=== PATIENT | male | born 1940 | race Caucasian/White ===

== ENCOUNTER → 2017-06-05 | Outpatient (CLI) | payer OTHER ==
[~2017-06-05] MED LIST: AMBIEN10 MG PO; ANTIBIOTIC; KEFLEX500 MG PO; LOPRESSOR50 M1 PO; METOPROLOL100 MG PO; MULTI VITAMINS1 TAB PO; OMEPRAZOLE20 MG PO; TAMSULOSIN HYD0.4 MG PO; XANAX1 MG PO
[2017-06-05 11:23] LABS: HEMATOCRIT 40.1 % (42.0-52.0); HEMOGLOBIN 13.9 g/dl (14.0-18.0); MEAN CELL VOLUME 93.5 fl (80.0-94.0); MEAN CORPUSCULAR HGB 32.4 pg (27.0-31.0); MEAN CORPUSCULAR HGB CONC 34.7 g/dl (33.0-37.0); RED BLOOD COUNT 4.29 10*6/uL (4.50-5.90); RED CELL DISTRI WIDTH 12.4 % (0-14.5); WHITE BLOOD COUNT 5.2 10*3/uL (4.8-10.8)
[2017-06-05 11:40] LABS: ALBUMIN 3.6 gm/dl (3.1-4.5); ALKALINE PHOSPHATASE 83 U/L (45-117); BUN 18 mg/dl (7-24); CHLORIDE 106 mmol/L (98-107); CHOLESTEROL 159 mg/dL (<200); CREATININE 0.93 mg/dL (0.70-1.30); HDL CHOLESTEROL 65 mg/dl (40-60); LDL CHOLESTEROL 78 mg/dL (9-159); POTASSIUM 3.8 mmol/L (3.5-5.1); SGOT/AST 22 IU/L (3-35); SGPT/ALT 21 U/L (12-78); SODIUM 140 mmol/L (136-145); TOTAL PROTEIN 6.9 gm/dL (6.4-8.2); TRIGLYCERIDES 79 mg/dl (<150); VLDL CHOLESTEROL 16 mg/dL (6-40)
== END | disposition home or self-care (01) ==
LOC: LAB 10:39
PROVIDERS: Family Medicine
DX: M41.86 Other forms of scoliosis, lumbar region (principal); I10 Essential (primary) hypertension; K21.9 Gastro-esophageal reflux disease without esophagitis; E55.9 Vitamin D deficiency, unspecified; E78.00 Pure hypercholesterolemia, unspecified

== ENCOUNTER 2017-12-26 13:20 | Inpatient (IN) | payer OTHER ==
[~2017-12-26] VITALS: Ht 182.8 cm; Wt 76.2 kg
--- NOTE | ~2017-12-26 | EKG ---
[place], [place] ELECTROCARDIOGRAM REPORT NAME: GURMEET DUMONT JR UNIT #: [id number] ROOM: 521 DOCTOR: JASWANT MCALLISTER,CARL BIRTHDATE: [birth year] DOS: 12/26/2017 TIME: 1416 hours IMPRESSION: 1. Atrial fibrillation with controlled ventricular rate. 2. Baseline artifacts. 3. Incomplete right bundle branch block versus right ventricular hypertrophy. 4. Old inferior infarction. 5. Normal QT interval. CARL MICHAUD MD CM:EKGRPT:ELECTROCARDIOGRAM REPORT [id number] CARL MICAHUD MD
[2017-12-26 13:27] VITALS: BP 130/67
[2017-12-26 14:23] LABS: BASO % 0.6 % (0.0-1.0); EOS # 0.2 10*3/uL (0.0-0.4); EOS % 4.8 % (1.0-4.0); HEMATOCRIT 41.4 % (42.0-52.0); HEMOGLOBIN 14.3 g/dl (14.0-18.0); LYMPH # 1.8 10*3/uL (1.3-4.4); MEAN CELL VOLUME 91.2 fl (80.0-94.0); MEAN CORPUSCULAR HGB 31.5 pg (27.0-31.0); MEAN CORPUSCULAR HGB CONC 34.5 g/dl (33.0-37.0); MONO # 0.6 10*3/uL (0.1-1.0); MONO % 10.9 % (3.0-9.0); NEUT # 2.5 10*3/uL (2.3-7.9); NEUT % 48.7 % (47.0-73.0); PLATELET COUNT AUTOMATED 218 10*3/uL (130-400); RED BLOOD COUNT 4.54 10*6/uL (4.50-5.90); RED CELL DISTRI WIDTH 12.5 % (0-14.5)
[2017-12-26 14:40] LABS: ALBUMIN 3.4 gm/dl (3.1-4.5); ALKALINE PHOSPHATASE 80 U/L (45-117); BUN 18 mg/dl (7-24); CHLORIDE 107 mmol/L (98-107); CREATININE 1.01 mg/dL (0.70-1.30); POTASSIUM 3.9 mmol/L (3.5-5.1); SGOT/AST 26 IU/L (3-35); SGPT/ALT 30 U/L (12-78); SODIUM 141 mmol/L (136-145); TOTAL PROTEIN 6.7 gm/dL (6.4-8.2)
[2017-12-26 14:43] LABS: TROPONIN I < 0.015 ng/ml (<0.045)
[2017-12-26 15:37] VITALS: BP 116/71
[2017-12-26 16:07] VITALS: BP 128/80
== END 2017-12-26 16:45 | disposition left against medical advice (07) | DRG 310 ==
LOC: ED 13:20 → EDHOLD 15:56 → 5E 16:17
PROVIDERS: Physician Assistant
DX: I48.91 Unspecified atrial fibrillation (principal); Z53.21 Procedure and treatment not carried out due to patient leaving prior to being seen by health care provider; Z83.6 Family history of other diseases of the respiratory system; Z79.899 Other long term (current) drug therapy

== ENCOUNTER → 2018-08-03 | Outpatient (CLI) | payer OTHER ==
[2018-08-03 12:48] LABS: HEMATOCRIT 40.2 % (42.0-52.0); MEAN CELL VOLUME 93.3 fl (80.0-94.0); MEAN CORPUSCULAR HGB 32.5 pg (27.0-31.0); MEAN CORPUSCULAR HGB CONC 34.8 g/dl (33.0-37.0); MEAN PLATELET VOLUME 8.9 fl (9.6-12.3); RED BLOOD COUNT 4.31 10*6/uL (4.50-5.90); RED CELL DISTRI WIDTH 12.1 % (0-14.5); WHITE BLOOD COUNT 4.5 10*3/uL (4.8-10.8)
[2018-08-03 13:07] LABS: ALBUMIN 3.7 gm/dl (3.1-4.5); ALKALINE PHOSPHATASE 80 U/L (45-117); BUN 23 mg/dl (7-24); CHLORIDE 103 mmol/L (98-107); SGOT/AST 23 IU/L (3-35); SODIUM 137 mmol/L (136-145); TOTAL PROTEIN 6.9 gm/dL (6.4-8.2)
[2018-08-03 13:15] LABS: CHOLESTEROL 157 mg/dL (<200); CREATININE 0.88 mg/dL (0.70-1.30); HDL CHOLESTEROL 63 mg/dl (40-60); LDL CHOLESTEROL 71 mg/dL (9-159); SGPT/ALT 23 U/L (12-78); TRIGLYCERIDES 113 mg/dl (<150); VLDL CHOLESTEROL 23 mg/dL (6-40)
== END | disposition home or self-care (01) ==
LOC: LAB 11:19
PROVIDERS: Family Medicine
DX: C61 Malignant neoplasm of prostate (principal); I25.10 Atherosclerotic heart disease of native coronary artery without angina pectoris; E74.9 Disorder of carbohydrate metabolism, unspecified; E78.00 Pure hypercholesterolemia, unspecified; E55.9 Vitamin D deficiency, unspecified; M79.606 Pain in leg, unspecified

== ENCOUNTER 2019-02-25 11:02 | Inpatient (IN) | payer OTHER ==
[~2019-02-25] VITALS: Ht 182.8 cm; Wt 71.4 kg
[2019-02-25] VITALS (11 sets, daily range): BP systolic 101–149; BP diastolic 64–102
--- NOTE | ~2019-02-25 | EKG ---
[place], [place] ELECTROCARDIOGRAM REPORT NAME: GURMEET DUMONT JR UNIT #: [id number] ROOM: 515 DOCTOR: SAMMI DRAFT REPORT BIRTHDATE: [birth year] [facility] Test Date: 2019-02-25 Test Time: 15:06:28 Pat Name: GURMEET DUMONT Department: Room: [facility] Gender: M Car Sales Representative: Nona Francisco : 1940 Requested By: SALEEM UMANZOR Order Number: [id number] Reading MD: Mohini Spann Measurements Intervals [place] Rate: 99 P: [place]: QRS: -76 QRSD: 92 T: 57 QT: 375 QTc: 482 Interpretive Statements Atrial fibrillation Abnormal R-wave progression, early transition Inferior infarct, old Electronically Signed On 02-28-2019 11:49:54 PDT by Mohini Spann CM:EKGRPT:ELECTROCARDIOGRAM REPORT [id number] SALEEM CHAPA DRAFT REPORT SALEEM UMANZOR M.D.
--- NOTE | ~2019-02-25 | WRIGHTHP ---
[place], [place] PATIENT HISTORY AND PHYSICAL EXAM NAME: GURMEET DUMONT JR [facility] #: [id number] UNIT #: [id number] ROOM: [facility] DOCTOR: LESLIE CARMONA MD BIRTHDATE: [birth year] DOS: HISTORY OF PRESENT ILLNESS: The patient is a 78-year-old gentleman with a past medical history of chronic atrial fibrillation, cancer of the prostate, depression, generalized anxiety disorder, rheumatoid arthritis. The patient presented to the Emergency Department with feeling palpitations, weak and he was found to be in atrial fibrillation with rapid ventricular response and was admitted to a monitored bed on IV Cardizem infusion. No chest pains, no dizziness or fainting episodes. No other GI or urinary symptoms. REVIEW OF SYSTEMS: RESPIRATORY: No increasing shortness of breath. GASTROINTESTINAL: No nausea, vomiting, diarrhea and constipation. CARDIOVASCULAR SYSTEM: Sensation of palpitations. No chest pains. FAMILY HISTORY: Noncontributory. SOCIAL HISTORY: Denies smoking cigarettes, alcohol and drug abuse. ALLERGIES: No known drug allergies. PHYSICAL EXAMINATION: GENERAL: Alert and oriented x 3, in no visible distress. VITAL SIGNS: Blood pressure 114/65, heart rate 98 beats per minute, breathing 18 times per minute, temperature 98 degrees Fahrenheit, heart rate went as high as 142 beats per minute recorded. HEENT AND NECK: Extraocular movements are intact. Sclerae are anicteric. Oral mucosa is moist and clean. No obvious facial weakness. Neck is supple without any lymphadenopathy. No thyromegaly. No JVD. No carotid arterial bruits. LUNGS: Clear to auscultation. No wheezing. No rhonchi. CARDIOVASCULAR SYSTEM: Heart rate is regular in rate and rhythm. S1 and S2 normally audible. No significant murmur or any other abnormal cardiac sounds. ABDOMEN: Soft, nontender. No obvious organomegaly. Bowel sounds are present. No obvious herniation. EXTREMITIES: Without significant cyanosis or edema. Warm to touch. CENTRAL NERVOUS SYSTEM: Alert and oriented x 3. Cranial nerves II-XII are intact. Speech is normal. The patient is able to move all extremities. Normal muscle strength. Deep tendon reflexes are equal on both sides. Plantars were downgoing. The patient with atrial fibrillation and rapid ventricular response. IMPRESSION: 1. The patient with bilateral inguinal pains where he had surgery requesting for pain medication injection. He will be given Toradol. Plan to continue digoxin and the patient already anticoagulated with Xarelto. 2. Benign prostatic hypertrophy and urine retention, asymptomatic with Flomax. 3. Gastroesophageal reflux disease and esophagitis, asymptomatic with omeprazole. 4. Benign essential hypertension, treated and controlled. [place], [place] PATIENT HISTORY AND PHYSICAL EXAM NAME: GURMEET DUMONT JR Paul UNIT #: [id number] ROOM: [facility] DOCTOR: LESLIE CARMONA MD BIRTHDATE: [birth year] LESLIE CARMONA MD CM:HISPHYS:PATIENT HISTORY AND PHYSICAL EXAMINATION 1205 [id number] LESLIE CARMONA MD 02/26/19 1242 interface
--- NOTE | ~2019-02-25 | EKG ---
[place], [place] ELECTROCARDIOGRAM REPORT NAME: GURMEET DUMONT JR UNIT #: [id number] ROOM: 515 DOCTOR: SAMMI DRAFT REPORT BIRTHDATE: [birth year] [facility] Test Date: 2019-02-25 Test Time: 11:17:32 Pat Name: GURMEET DUMONT Department: Room: [facility] Gender: M Business Process Consultant: : 1940 Requested By: SALEEM UMANZOR Order Number: [id number] Reading MD: Mohini Spann Measurements Intervals [place] Rate: 143 P: [place]: QRS: -65 QRSD: 88 T: 41 QT: 306 QTc: 472 Interpretive Statements Atrial fibrillation with rapid V-rate Abnormal R-wave progression, early transition Inferior infarct, old Electronically Signed On 02-28-2019 11:48:42 PDT by Mohini Spann CM:EKGRPT:ELECTROCARDIOGRAM REPORT [id number] 1148 SALEEM CHAPA DRAFT REPORT SALEEM UMANZOR M.D.
--- NOTE | ~2019-02-25 | EKG ---
[place], [place] ELECTROCARDIOGRAM REPORT NAME: GURMEET DUMONT JR UNIT #: [id number] ROOM: 515 DOCTOR: SAMMI DRAFT REPORT BIRTHDATE: [birth year] [facility] Test Date: 2019-02-25 Test Time: 17:57:35 Pat Name: GURMEET DUMONT Department: Room: [facility] Gender: M Medical Device: EKG.[place] : 1940 Requested By: SLAEEM UMANZOR Order Number: [id number] Reading MD: Mohini Spann Measurements Intervals [place] Rate: 85 P: [place]: QRS: -71 QRSD: 93 T: 61 QT: 346 QTc: 412 Interpretive Statements Atrial fibrillation Abnormal R-wave progression, early transition Inferior infarct, old No previous ECG available for comparison Electronically Signed On 02-28-2019 11:50:54 PDT by Mohini Spann CM:EKGRPT:ELECTROCARDIOGRAM REPORT [id number] SALEEM CHAPA DRAFT REPORT SALEEM UMANZOR M.D.
--- NOTE | ~2019-02-25 | DS ---
[place], [place] DISCHARGE SUMMARY [id number] #: [id number] ROOM: 515 DOCTOR: RUBI MARTINEZ MD BIRTHDATE: [birth year] DOS: 02/27/2019 DIAGNOSES: 1. Atrial fibrillation with rapid ventricular response, slow down with medications, but remains in atrial fibrillation. 2. Long-term use of anticoagulants. 3. Benign hypertension. 4. Benign prostatic hypertrophy. PENSION CONSULTANT: Dr. Spann. HOSPITAL COURSE: This patient is 78 years old presented with palpitations. Please refer to H and P for the details, found to be in rapid AFib, was admitted on IV Cardizem. Digoxin was also given. The patient's heart rate slowed down, IV Cardizem discontinued. Beta blockers and Lanoxin p.o. was started. The patient is stable this morning and is not having any complaints. The plan is to discharge him to home. DISCHARGE MEDICATIONS: Xarelto 20 daily, Lanoxin 0.125 daily, multivitamin 1 tablet daily, Xanax 1 mg b.i.d., omeprazole 20 daily, tamsulosin 0.4 daily, metoprolol 50 b.i.d., quetiapine 100 mg at bedtime, Myrbetriq 25 daily, dicyclomine 10 t.i.d. RUBI MARTINEZ MD CM:DISCHARG 0813 9 RUBI MARTINEZ MD 02/27/19911 interface
--- NOTE | ~2019-02-25 | PR ---
[place], [place] PROGRESS NOTE [id number] #: [id number] ROOM: 515 DOCTOR: RUBI MARTINEZ MD BIRTHDATE: [birth year] DOS: SUBJECTIVE: The patient is doing fine without any complaints. OBJECTIVE: VITAL SIGNS: Graphic trend shows a pressure of 108/70, pulse of 90, respirations 16, temperature 97.5. LUNGS: Clear. HEART: Irregular. ABDOMEN: Obese, soft. EXTREMITIES: Without any edema. ASSESSMENT AND PLAN: 1. Atrial fibrillation with rapid ventricular response. His heart rate has slowed down. He is stable on the current medications and, so, the plan is to discharge him to home today. 2. Long-term use of anticoagulants has been restarted with Xarelto. Prescription was given. He is advised to follow up with his PCP. Reviewed Cardiology notes. RUBI MARTINEZ MD CM:PNTRANS 0811 1034 RUBI MARTINEZ MD 02/27/19 1036 interface
[2019-02-25 11:27] LABS: BASO % 0.5 % (0.0-1.0); EOS # 0.2 10*3/uL (0.0-0.4); EOS % 3.9 % (1.0-4.0); HEMATOCRIT 41.3 % (42.0-52.0); HEMOGLOBIN 14.1 g/dl (14.0-18.0); LYMPH # 1.3 10*3/uL (1.3-4.4); LYMPH % 21.6 % (27.0-41.0); MEAN CELL VOLUME 94.7 fl (80.0-94.0); MEAN CORPUSCULAR HGB 32.3 pg (27.0-31.0); MEAN CORPUSCULAR HGB CONC 34.1 g/dl (33.0-37.0); MEAN PLATELET VOLUME 9.4 fl (9.6-12.3); MONO # 0.6 10*3/uL (0.1-1.0); MONO % 10.5 % (3.0-9.0); NEUT # 3.9 10*3/uL (2.3-7.9); NEUT % 63.3 % (47.0-73.0); PLATELET COUNT AUTOMATED 234 10*3/uL (130-400); RED BLOOD COUNT 4.36 10*6/uL (4.50-5.90); RED CELL DISTRI WIDTH 13.4 % (0-14.5); WHITE BLOOD COUNT 6.1 10*3/uL (4.8-10.8)
[2019-02-25 11:39] LABS: ACT PARTIAL THROMBO TIME 24.1 SECONDS (20.0-32.1)
[2019-02-25 11:42] LABS: ALBUMIN 3.3 gm/dl (3.1-4.5); ALKALINE PHOSPHATASE 99 U/L (45-117); BUN 22 mg/dl (7-24); CHLORIDE 110 mmol/L (98-107); CREATININE 1.02 mg/dL (0.70-1.30); POTASSIUM 3.8 mmol/L (3.5-5.1); SGOT/AST 16 IU/L (3-35); SGPT/ALT 25 U/L (12-78); SODIUM 143 mmol/L (136-145); TOTAL PROTEIN 6.7 gm/dL (6.4-8.2)
[2019-02-25] MEDS ORDERED: DICYCLOMINE HCL10 MG PO (11:42)
[2019-02-25] MEDS ORDERED: QUETIAPINE FUM200 M1 PO (11:42)
[2019-02-25] MEDS ORDERED: MYRBETRIQ25 M1 PO (11:42)
[2019-02-25 11:47] LABS: TROPONIN I < 0.015 ng/ml (<0.045)
--- NOTE | 2019-02-25 12:49 | NUR ---
PT W/O ACUTE DISTRESS NOTED,POSITIONED FOR COMFORT WITH SAFETY PRECAUTIONS INTACT,CALL LIGHT WITHIN REACH AN A URINAL PROVIDED,PT WITH BLE PAIN/CRAMPING INTERMITTENTLY AND DREW MCCRARY PA-C MADE AWARE.
--- NOTE | 2019-02-25 15:36 | NUR ---
A 78, admitted to , under the services of Dr. MATHEW MCALLISTER,LESLIE Varghese with a diagnosis of ATRIAL FIBRILLATION WITH RVR. Chief complaint is SHORTNESS OF BREATH . Patient arrived via stretcher from ER. Monitor applied. Initial assessment completed. Vital signs taken and recorded. DR. MATHEW MCALLISTER,LESLIE Varghese notified of admission to the unit. Orders received. See assessment for past medical history, medications and allergies. Patient and/or family oriented to unit. [facility] visitation policy reviewed. Clothing/patient valuable form completed. JACQUE ISLAS
--- NOTE | 2019-02-25 17:06 | NUR ---
SPOKE WITH DR CARMONA - ORDERS TAKEN AND REVIEWED.
--- NOTE | 2019-02-25 17:18 | NUR ---
PHONE CALL PLACED TO DR SAINI'S ANSWERING SERVICE TO INFORM OF CONSULT. AWAITING A RETURN PHONE CALL.
--- NOTE | 2019-02-25 19:00 | NUR ---
BEDSIDE REPORT OBTAINED FROM JACQUE-ANTONY. PATIENT IS RESTING IN BED, VOCIED NO COMPLAINTS. NO DSITRESS NOTED. METAL MODEL MAKER SHOWS AFIB MOSTLY HIGH 90'S-110'S BUT JUMPING UP TO 130'S AT TIMES. CARDIZEM DRIP INCREASED TO 10MG/HR. BED IS LOCKED IN LOWEST POSITON, CALL LIGHT WITHIN REACH.
--- NOTE | 2019-02-25 20:00 | NUR ---
IV started right hand with #20 protective cath after 0 attempts. Site prepped with Chloroprep. Sterile dressing applied. Patient tolerated procedure well. IVORY MCCARTHY
[2019-02-26] VITALS (7 sets, daily range): BP systolic 100–119; BP diastolic 57–72
--- NOTE | 2019-02-26 | NUR ---
PER CM HR IRREGULAR AFIB 70-80'S BPM. CARDIZEM TITRATED DOWN TO 5MG/HR, BLOOD PRESSURE STABLE. PATIENT VOICED NO COMPLAINTS. CALL LIGHT WITHIN REACH.
--- NOTE | 2019-02-26 00:25 | NUR ---
PER CM HR IRREGULAR FIB 60-70'S BPM PER CM. CARDIZEM DRIP STOPPED AT THIS TIME. PATIENT RESTING QUIETLY, NO DISTRESS NOTED. CALL LIGHT WITHIN REACH.
--- NOTE | 2019-02-26 02:00 | NUR ---
PATIENT ASLEEP. EYES CLOSED. NO DISTRESS NOTED. HR PER CM IRREGULAR AFIB 60-70'S. NO DISTRESS NOTED. CALL LIGHT WITHIN REACH.
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
--- NOTE | 2019-02-26 11:35 | NUR ---
Alert and oriented x3 at assessment. Afib on CM hr 90's denies chest pain or palpitations. C/o pain to rt lower quad of abdomen, states he has had a hx of hernia surgery and has had pain off and on since then. Dr. Syed was in room at time of assessment and he states he will review labs on pt and order toradol if appropriate.
--- NOTE | 2019-02-26 13:30 | NUR ---
Spoke with Pierce in pharmacy regarding order from Dr. Syed for order for toradol 60 mg IM x 1 dose. I was unable to enter it as IM in the system, it only comes up as IV. Pierce Pharmacist states he will enter order on his side for pt.
--- NOTE | 2019-02-26 18:19 | NUR ---
Pt states he only had a small result from suppository and is requesting something else to help him have a BM. Medicated with ducolox po per prn order.
--- NOTE | 2019-02-26 19:28 | NUR ---
24 HR CHART CHECK COMPLETE.
--- NOTE | 2019-02-26 20:08 | NUR ---
24 HR chart check completed.
--- NOTE | 2019-02-26 22:00 | NUR ---
RESTING IN BED WITH NO ACUTE DISTRESS NOTED. RESPIRATIONS EASY. LUNGS DIMINISHED, CLEAR. PULSE OX 99% RA. DENIES SOB OR HEART PALPITATIONS. CALL LIGHT WITHIN REACH. NO VOICED COMPLAINTS.
[2019-02-27] VITALS: BP 108/70; BP 99/75
--- NOTE | 2019-02-27 01:00 | NUR ---
SLEEPING. NO ACUTE DISTRESS NOTED. RESPIRATIONS EASY. CALL LIGHT WITHIN REACH.
--- NOTE | 2019-02-27 06:00 | NUR ---
SLEPT THROUGHOUT NIGHT WITH NO DISTRESS NOTED. RESPIRATIONS EASY. HR 80-100, REMAINS A-FIB. CALL LIGHT WITHIN REACH. NO VOICED COMPLAINTS THIS SHIFT
[2019-02-27 08:00] VITALS: BP 122/76; BP 123/52
[2019-02-27] MEDS ORDERED: XARE20MG PO (08:05)
[2019-02-27] MEDS ORDERED: Lanoxin PO (08:05)
--- NOTE | 2019-02-27 09:32 | NUR ---
Discharge instructions reviewed with patient/family. Patient receptive and verbalizes understanding. Follow-up care arranged. Written instructions given to patient/family. FABRICIO SUGGS
--- NOTE | 2019-02-27 09:56 | NUR ---
Discharge instructions reviewed with patient/family. Patient receptive and verbalizes understanding. Follow-up care arranged. Written instructions given to patient/family. FABRICIO SUGGS
== END 2019-02-27 09:56 | disposition home or self-care (01) | DRG 310 ==
LOC: ED 11:02 → 5E 14:08 → EDHOLD 14:08 → 5E 14:27
PROVIDERS: Emergency Medicine; ADMIT Internal Medicine
DX: I48.91 Unspecified atrial fibrillation (principal); F41.1 Generalized anxiety disorder; M06.9 Rheumatoid arthritis, unspecified; F32.9 Major depressive disorder, single episode, unspecified; N40.1 Benign prostatic hyperplasia with lower urinary tract symptoms; I10 Essential (primary) hypertension; K21.0 Gastro-esophageal reflux disease with esophagitis; R33.9 Retention of urine, unspecified; Z85.46 Personal history of malignant neoplasm of prostate; Z83.6 Family history of other diseases of the respiratory system; Z79.01 Long term (current) use of anticoagulants; S06.9X9S Unspecified intracranial injury with loss of consciousness of unspecified duration, sequela

== ENCOUNTER 2019-07-14 16:14 | Emergency (ER) | payer OTHER ==
[~2019-07-14] VITALS: Ht 182.8 cm; Wt 70.3 kg
[~2019-07-14 16:14] MED LIST changes: +DICYCLOMINE HCL10 MG PO; +Lanoxin PO; +MYRBETRIQ25 M1 PO; +QUETIAPINE FUM200 M1 PO; +XARE20MG PO
[2019-07-14 16:16] VITALS: BP 142/66
== END 2019-07-14 17:50 | disposition home or self-care (01) ==
LOC: ED 16:14
DX: S81.832A Puncture wound without foreign body, left lower leg, initial encounter (principal); Z79.899 Other long term (current) drug therapy; Z87.891 Personal history of nicotine dependence; W22.8XXA Striking against or struck by other objects, initial encounter; Y93.89 Activity, other specified; Y92.89 Other specified places as the place of occurrence of the external cause; Y99.8 Other external cause status

== ENCOUNTER → 2019-10-19 | Outpatient (CLI) | payer OTHER ==
[2019-10-19 15:24] LABS: HEMOGLOBIN 14.1 g/dl (14.0-18.0); MEAN CELL VOLUME 94.2 fl (80.0-94.0); MEAN CORPUSCULAR HGB 31.6 pg (27.0-31.0); MEAN CORPUSCULAR HGB CONC 33.6 g/dl (33.0-37.0); MEAN PLATELET VOLUME 9.4 fl (9.6-12.3); RED BLOOD COUNT 4.46 10*6/uL (4.50-5.90); RED CELL DISTRI WIDTH 12.5 % (0-14.5); WHITE BLOOD COUNT 6.2 10*3/uL (4.8-10.8)
[2019-10-19 15:43] LABS: ALBUMIN 3.9 gm/dl (3.1-4.5); ALKALINE PHOSPHATASE 85 U/L (45-117); BUN 23 mg/dl (7-24); CHLORIDE 108 mmol/L (98-107); CHOLESTEROL 177 mg/dL (<200); CREATININE 1.02 mg/dL (0.70-1.30); HDL CHOLESTEROL 72 mg/dl (40-60); LDL CHOLESTEROL 92 mg/dL (9-159); SGOT/AST 18 IU/L (3-35); SGPT/ALT 26 U/L (12-78); SODIUM 141 mmol/L (136-145); TOTAL PROTEIN 7.2 gm/dL (6.4-8.2); TRIGLYCERIDES 63 mg/dl (<150); VLDL CHOLESTEROL 13 mg/dL (6-40)
[2019-10-19 15:53] LABS: DIGOXIN 0.09 ng/ml (0.8-2.0)
== END | disposition home or self-care (01) ==
LOC: LAB 14:40
PROVIDERS: Nurse Practitioner Family
DX: Z12.5 Encounter for screening for malignant neoplasm of prostate (principal); E55.9 Vitamin D deficiency, unspecified; I10 Essential (primary) hypertension; I48.91 Unspecified atrial fibrillation

== ENCOUNTER 2020-04-04 08:57 | Inpatient (IN) | payer OTHER ==
[~2020-04-04] VITALS: Ht 182.8 cm; Wt 65.9 kg
[2020-04-04 09:02] VITALS: BP 108/62
--- NOTE | 2020-04-04 10:01 | NUR ---
LAB AT BEDSIDE, EKG COMPLETED.
--- NOTE | 2020-04-04 10:12 | NUR ---
RADIOLOGY AT BEDSIDE.
[2020-04-04 10:42] LABS: BASO % 0.4 % (0.0-1.0); EOS % 0.2 % (1.0-4.0); LYMPH # 0.8 10*3/uL (1.3-4.4); LYMPH % 15.7 % (27.0-41.0); MEAN CELL VOLUME 94.7 fl (80.0-94.0); MEAN CORPUSCULAR HGB 31.6 pg (27.0-31.0); MEAN CORPUSCULAR HGB CONC 33.3 g/dl (33.0-37.0); MEAN PLATELET VOLUME 9.5 fl (9.6-12.3); MONO # 0.3 10*3/uL (0.1-1.0); NEUT # 3.7 10*3/uL (2.3-7.9); NEUT % 76.5 % (47.0-73.0); PLATELET COUNT AUTOMATED 254 10*3/uL (130-400); RED BLOOD COUNT 4.12 10*6/uL (4.50-5.90); RED CELL DISTRI WIDTH 12.7 % (0-14.5); WHITE BLOOD COUNT 4.9 10*3/uL (4.8-10.8)
[2020-04-04 10:53] LABS: ACT PARTIAL THROMBO TIME 33.1 SECONDS (20.0-32.1); INTERNATIONAL NORM RATIO 1.3 (2.0-3.5)
[2020-04-04 11:02] LABS: EPITHELIAL CELLS 0-2; WBC 0-2 wbc/hpf (0-5)
[2020-04-04 11:03] LABS: ALBUMIN 3.6 gm/dl (3.1-4.5); ALKALINE PHOSPHATASE 65 U/L (45-117); BUN 27 mg/dl (7-24); CHLORIDE 105 mmol/L (98-107); CREATININE 1.16 mg/dL (0.70-1.30); LIPASE 78 U/L (73-393); POTASSIUM 4.9 mmol/L (3.5-5.1); SGOT/AST 46 IU/L (3-35); SGPT/ALT 31 U/L (12-78); SODIUM 137 mmol/L (136-145); TOTAL PROTEIN 7.4 gm/dL (6.4-8.2)
[2020-04-04 11:03] LABS: BILIRUBIN NEGATIVE (NEGATIVE); BLOOD TRACE-INTACT (NEGATIVE); CLARITY CLEAR (CLEAR); COLOR YELLOW (YELLOW); GLUCOSE NEGATIVE (NEGATIVE); KETONE 2+ (NEGATIVE); LEUKO ESTERASE NEGATIVE (NEGATIVE); NITRITE NEGATIVE (NEGATIVE); SPECIFIC GRAVITY 1.015 (1.005-1.030); UROBILINOGEN 0.2 E.U./dl (0.2-1.0)
[2020-04-04 11:10] LABS: TROPONIN I < 0.015 ng/ml (<0.045)
--- NOTE | 2020-04-04 12:42 | NUR ---
PT SITTING SEMI FOWLERS IN BED, NO NEEDS.
--- NOTE | 2020-04-04 13:28 | NUR ---
MULTIPLE LESIONS OVER BODY, PT REFUSING PHOTOS AT THIS TIME. TRISH HARDY WITNESSED.
--- NOTE | 2020-04-04 13:46 | NUR ---
WALKED INTO ROOM AND PT IS PICKING AT RASH TO PENIS AND ABDOMEN. PT STATES "IT ITCHES AND PELAEZ". ENCOURAGED PT TO STOP PICKING.
[2020-04-04 13:53] VITALS: BP 120/80
--- NOTE | 2020-04-04 14:29 | NUR ---
PT REFUSED WOUND PHOTO'S AND MEASUREMENTS.
--- NOTE | 2020-04-04 14:50 | NUR ---
MSADMTime: N A 79 year old MALE admitted to 5E under services of MIGUEL LANDEROS DO. Pt. arrived via bed from ER. Chief complaint: INSECT BITES. HECTOR ARREDONDO
--- NOTE | 2020-04-04 15:46 | NUR ---
DR. MATA'S OFFICE NOTIFIED OF COMSULT.
[2020-04-04 16:00] VITALS: BP 146/74
[2020-04-04 20:00] VITALS: BP 112/67
--- NOTE | 2020-04-04 20:33 | NUR ---
DR BOLTON AWARE OF PATIENT REQUESTING SOMETHING FOR ITCHING.
--- NOTE | 2020-04-04 20:53 | NUR ---
MEDICATED WITH PRN XANAX FOR ANXIOUSNESS AND ONE TIME BENEDRYL FOR ITCHING.
--- NOTE | 2020-04-04 21:53 | NUR ---
XANAX AND BENEDRYL EFFECTIVE PER PATIENT
--- NOTE | 2020-04-04 23:25 | NUR ---
DR BOLTON AWARE OF PATIENT'S BLOOD PRESSURE. ORDER FOR ONE LITER BOLUS NOW
[2020-04-05] VITALS (8 sets, daily range): BP systolic 82–119; BP diastolic 38–72
--- NOTE | 2020-04-05 00:42 | NUR ---
DR BOLTON AWARE OF PATIENT'S UPDATED BLOOD PRESSURE AFTER FLUID BOLUS. STATES TO GIVE NORMAL SALINE AT 150CC/HR FOR ONE BAG
--- NOTE | 2020-04-05 07:34 | NUR ---
GURMEET DUMONT JR [id number] Please refer to the physician's history and physical for past medical history, comorbid conditions, and allergies. Diagnosis: CELLULITIS,ABDOMINAL WALL,RASH Tomas Score: 22,LOW OR NO RISK WOUND DESCRIPTIONS: Wound Number: 1 Location of the wound: penis Type of wound: insect bite Size: 1.7cm x 1.7cm x 0.1cm Tunneling: none Undermining: none Sinus Tract: none Presence of Exudate: none Amount: None Color: Red Odor: None Periwound Skin Appearance: Normal Wound edges: approximated Pain (associated with wound): none at time of assessment How does patient state this happened? pt state he was helping a woman clean her attic and put the womans pants on that have been there for several years because he thought they were clean and bugs were flying off at him and attacking him Wound Number: 2 Location of the wound: right upper thigh Type of wound: insect bite Thickness: Full Size: 9.5cm x 11.0cm x 0.1cm Tunneling: none Undermining: none Sinus Tract: none Presence of Exudate: none Amount: None Color: Red, yellow, brown Odor: None Periwound Skin Appearance: Normal Wound edges: approximated Pain (associated with wound): none at time of assessment How does patient state this happened? pt state he was helping a woman clean her attic and put the womans pants on that have been there for several years because he thought they were clean and bugs were flying off at him and attacking him Wound Number: 3 Location of the wound: right anterior thigh Type of wound: insect bite Thickness: Full Size: 0.5cm x 0.6cm x 0.1cm Tunneling: none Undermining: none Sinus Tract: none Presence of Exudate: none Amount: None Color: Red, brown Odor: None Periwound Skin Appearance: Normal Wound edges: approximated Pain (associated with wound): none at time of assessment How does patient state this happened? pt state he was helping a woman clean her attic and put the womans pants on that have been there for several years because he thought they were clean and bugs were flying off at him and attacking him Wound Number: 4 Location of the wound: right medial upper thigh Type of wound: insect bite Thickness: Full Size: 0.7cm x 1.2cm x 0.1cm Tunneling: none Undermining: none Sinus Tract: none Presence of Exudate: none Amount: None Color: Red, brown Odor: None Periwound Skin Appearance: Normal Wound edges: approximated Pain (associated with wound): none at time of assessment How does patient state this happened? pt state he was helping a woman clean her attic and put the womans pants on that have been there for several years because he thought they were clean and bugs were flying off at him and attacking him Wound Number: 5 Location of the wound: left lateral knee Type of wound: insect bite Thickness: Full Size: 1.4cm x 1.4cm x 0.1cm Tunneling: none Undermining: none Sinus Tract: none Presence of Exudate: none Amount: None Color: Red, brown Odor: None Periwound Skin Appearance: Normal Wound edges: approximated Pain (associated with wound): none at time of assessment How does patient state this happened? pt state he was helping a woman clean her attic and put the womans pants on that have been there for several years because he thought they were clean and bugs were flying off at him and attacking him Wound Number: 6 Location of the wound: left hip Type of wound: insect bite Thickness: Full Size: 12.0cm x 9.0cm x 0.1cm Tunneling: none Undermining: none Sinus Tract: none Presence of Exudate: none Amount: None Color: Red, brown, yellow Odor: None Periwound Skin Appearance: Normal Wound edges: approximated Pain (associated with wound): none at time of assessment How does patient state this happened? pt state he was helping a woman clean her attic and put the womans pants on that have been there for several years because he thought they were clean and bugs were flying off at him and attacking him Wound Number: 7 Location of the wound: abdomen Type of wound: insect bite Thickness: Full Size: 7.5cm x 4.0cm x 0.1cm Tunneling: none Undermining: none Sinus Tract: none Presence of Exudate: none Amount: None Color: Red, yellow, brown Odor: None Periwound Skin Appearance: Normal Wound edges: approximated Pain (associated with wound): none at time of assessment How does patient state this happened? pt state he was helping a woman clean her attic and put the womans pants on that have been there for several years because he thought they were clean and bugs were flying off at him and attacking him Wound Number: 8 Location of the wound: left ear Type of wound: insect bite Thickness: Full Size: 2.0cm x 2.5cm x 0.1cm Tunneling: none Undermining: none Sinus Tract: none Presence of Exudate: none Amount: None Color: Red, brown Odor: None Periwound Skin Appearance: Normal Wound edges: approximated Pain (associated with wound): none at time of assessment How does patient state this happened? pt state he was helping a woman clean her attic and put the womans pants on that have been there for several years because he thought they were clean and bugs were flying off at him and attacking him Wound Number: 9 Location of the wound: left upper thigh Type of wound: insect bite Thickness: Full Size: 14.5cm x 15.5cm x 0.1cm Tunneling: none Undermining: none Sinus Tract: none Presence of Exudate: none Amount: None Color: Red, yellow, brown Odor: None Periwound Skin Appearance: Normal Wound edges: approximated Pain (associated with wound): none at time of assessment How does patient state this happened? pt state he was helping a woman clean her attic and put the womans pants on that have been there for several years because he thought they were clean and bugs were flying off at him and attacking him Surface the patient is resting on: Isoflex SKIN PREVENTION RECOMMENDATION: 1. Pressure redistribution support surface as appropriate 2. Elevate heels 3. Remove boots/TEDS every shift and reapply 4. Head of bed 30 degrees as tolerated 5. Assess nutrition and hydration 6. Manage moisture 7. Avoid the use of containment devices while in bed 8. Use absorptive products on surfaces limit layers of linens on bed 9. Turn and reposition every 1-2 hours in bed and every 1 hour in chair as tolerated 10. Weight shifts every 15 minutes while up in chair 11. Offloading with pillows or device to keep heels elevated off bed 12. Monitor skin at least every shift 13. Inspect under medical devices twice a day WOUND TREATMENT RECOMMENDATIONS: ID is already on consult for rash noted to several areas on body. Cleanse penis with nss and apply bactroban ointment bid leave open to air Cleanse right upper thigh, left upper thigh, right upper anterior thigh, right upper medial thigh, left lateral knee, left hip, abdomen and left ear with nss and apply bactroban ointment bid and cover with dsd. Patient states he will follow with Dr. Govea upon discharged and doesn't wish to follow up in the wound care center at this time.
[2020-04-05 07:42] LABS: BASO % 0.6 % (0.0-1.0); EOS # 0.3 10*3/uL (0.0-0.4); EOS % 5.3 % (1.0-4.0); HEMATOCRIT 34.9 % (42.0-52.0); LYMPH # 1.2 10*3/uL (1.3-4.4); LYMPH % 24.9 % (27.0-41.0); MEAN CELL VOLUME 95.9 fl (80.0-94.0); MEAN CORPUSCULAR HGB 31.6 pg (27.0-31.0); MEAN PLATELET VOLUME 9.3 fl (9.6-12.3); MONO # 0.5 10*3/uL (0.1-1.0); MONO % 10.8 % (3.0-9.0); NEUT # 2.8 10*3/uL (2.3-7.9); NEUT % 58.2 % (47.0-73.0); PLATELET COUNT AUTOMATED 217 10*3/uL (130-400); RED BLOOD COUNT 3.64 10*6/uL (4.50-5.90); RED CELL DISTRI WIDTH 12.8 % (0-14.5); WHITE BLOOD COUNT 4.7 10*3/uL (4.8-10.8)
[2020-04-05 07:57] LABS: ALBUMIN 2.9 gm/dl (3.1-4.5); ALKALINE PHOSPHATASE 61 U/L (45-117); BUN 25 mg/dl (7-24); CHLORIDE 112 mmol/L (98-107); CREATININE 0.98 mg/dL (0.70-1.30); SGOT/AST 24 IU/L (3-35); SGPT/ALT 21 U/L (12-78); TOTAL PROTEIN 5.7 gm/dL (6.4-8.2)
[2020-04-05 08:05] LABS: POTASSIUM 3.7 mmol/L (3.5-5.1); SODIUM 142 mmol/L (136-145)
--- NOTE | 2020-04-05 08:36 | NUR ---
PT RESTING IN BED. NO DISTRESS NOTED. PT EATING BREAKFAST. WILL MONITOR
--- NOTE | 2020-04-05 08:51 | NUR ---
Dr. Horner notified of wound care recommendations
--- NOTE | 2020-04-05 11:58 | NUR ---
PT REQUESTED AND GIVEN NORCO FOR C/O ' ALL OVER PAIN " PT RATES PAIN 05/08 WILL MONITOR
--- NOTE | 2020-04-05 12:55 | NUR ---
Sales Clerk in to talk to patient. Patient states lives at HOME with ALONE. There are 13 steps in the home. Physician: BETH Pharmacy: [facility] [place] health services: NONE Patient's level of ADLs: INDEPENDENT Patient has working utilities: YES DME: NONE Follow-up physician's appointment after d/c: WILL BE MADE BY HOSPITALIST NURSE DIRECTOR ON DISCHARGE Does patient want to access PORTAL?: NO Discharge plan PT LIVES AT HOME ALONE AND IS INDEPENDENT IN HIS CARE. PT STATES HIS BROTHER RECENTLY AND HE IS LIVING IN HIS HOUSE. PT STATES HE HAD HIS BROTHERS OXYGEN AT HOME AND HAD BEEN USING IT OCCASIONALLY UNTIL THE TANK RAN OUT. PLANS TO RETURN HOME WHEN MEDICALLY STABLE. WILL CONTINUE TO FOLLOW. WILL TAKE A TAXI HOME WHEN DISCHARGED UNLESS HIS GRAND DAUGHTER IS BACK IN TOWN.. ZACHARY FATIMA
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
[2020-04-05 21:40] LABS: CLARITY SL CLOUDY (CLEAR); COLOR YELLOW (YELLOW); GLUCOSE NEGATIVE (NEGATIVE); KETONE NEGATIVE (NEGATIVE); LEUKO ESTERASE NEGATIVE (NEGATIVE); NITRITE NEGATIVE (NEGATIVE); SPECIFIC GRAVITY 1.015 (1.005-1.030); UROBILINOGEN 0.2 E.U./dl (0.2-1.0)
[2020-04-05 21:55] LABS: BILIRUBIN NEGATIVE (NEGATIVE); BLOOD NEGATIVE (NEGATIVE)
[2020-04-06] VITALS: BP 99/64
--- NOTE | 2020-04-06 02:28 | NUR ---
PATIENT'S IV IN RIGHT ARM INFILTRATED. DISCONTINUED AND RESTARTED. 22 GUAGE HEP LOCKED IN THE LEFT ARM. FLUSHED WITH NORMAL SALINE. CLEANED WITH CHLOROPREP BEFORE INSERTION. PATIENT TOLERATED WELL. IV LEVAQUIN HOOKED UP AND RUNNING.
[2020-04-06 08:00] VITALS: BP 135/66
--- NOTE | 2020-04-06 08:30 | NUR ---
PT RESTING IN BED. NO DISTRESS NOETD. WILL MONITOR
--- NOTE | 2020-04-06 10:49 | NUR ---
PT MEDICATED WITH DULCOLAX FOR C/O CONSTIPATION WILL MONITOR
--- NOTE | 2020-04-06 11:51 | NUR ---
PT STATES HE WILL RETURN HOME WITH NO NEW NEEDS ON DISCHARGE. WILL CONTINUE TO FOLLOW.
[2020-04-06 12:00] VITALS: BP 137/81
[2020-04-06 16:00] VITALS: BP 139/79
[2020-04-06] MEDS ORDERED: DOXYCYCLINE100 M3 PO (16:42)
[2020-04-06] MEDS ORDERED: OMNICEF300 MG PO (16:42)
[2020-04-06 20:00] VITALS: BP 127/82
[2020-04-07] VITALS: BP 112/67
[2020-04-07 08:00] VITALS: BP 127/70
[2020-04-07 10:07] LABS: ACID FAST SPEC PROCESSING Direct Inoculation (.)
--- NOTE | 2020-04-07 11:36 | NUR ---
PT FRIEND SNUCK PAST GUARD AND CAME TO NURSES STATION ON . I STOPPED PT AND WE DISCUSSED HIS ISOLATION STATUS AND SHE STATED THAT PT HOME WAS "INFESTED WITH BED BUGS".CAITLYN LAWRENCE STATED SHE WAS TIOLD BY PT TO COME HOME ENERGY INSPECTOR MONEY AND HIS PHONE. PT GAVE DAVIE LAWRENCE 70$ AND HIS ATT CELLPHONE TO HAVE HER PUT MINUTRS ON HIS PHONE. CAITLYN SIGNED FOR PT BELONGING LIST UPON RECIEPT OF C VASQUEZ AND PHONE.LICENSED SALES PRODUCER STONEY WAS PRESENT FOR EXCHANGE AND AT THIS TIME SHE SPOKE TO PT FRIEND WELL PT REGARDING GETTING HELP AT HOME TO EXTERMINATE BED BUGS WELL C. NOTIFIED DR EPSTEIN. [facility] NOTIFIED THAT WE WERE STILL AWAITING DIRECTOR OF VIDEO ANALYTICS TO SEE PT REGARDING SAFETY TO RETURN TO HOME. DIRECTOR OF VIDEO ANALYTICS NO LONGER AVAILABLE TODAY. [facility] STATES THEY WEILL SEE PT TOMORROW.
--- NOTE | 2020-04-07 11:47 | NUR ---
Spoke in hallway to friend, Rasheeda. Rasheeda states patient has bed bugs at home and plans on going home to place bombs. Patient lives in his brother's home. front worker notified. Rasheeda states patient needs help at home with follow-up medications and appointments. Forensic Photographer in to see patient. Discussed home health care services and he is agreeable. When provided with a list of agencies he chose [facility]. Hospitalist nurse director and hospice case manager notified.
[2020-04-07 12:00] VITALS: BP 131/80
--- NOTE | 2020-04-07 12:52 | NUR ---
NORCO 5/325 MG GIVEN FOR C/O LEG PAIN,04/07.
--- NOTE | 2020-04-07 13:48 | NUR ---
Contacted [facility] regarding help for patient with bed bugs. She stated due to the patients age and their limited resources I should call [facility] Services. Contacted Senior services and was unable to speak to anyone. I left a voice message for services needed and a return number. Waiting technical implementation lead back.
--- NOTE | 2020-04-07 15:35 | NUR ---
TANKAGE GRINDER RECEIVED CALL FROM [facility]. SHE WILL FOLLOW UP WITH THE PATIENT.
[2020-04-07 16:00] VITALS: BP 145/60
--- NOTE | 2020-04-07 18:29 | NUR ---
PT GIVEN TYLENOL 650 MG PO AT THIS TIME FOR C/O HEADACHE. WILL MONITOR FOR EFFECTIVENESS. CALL LIGHT IN REACH.
[2020-04-07 20:00] VITALS: BP 102/84
[2020-04-08] VITALS: BP 128/77
[2020-04-08 07:29] LABS: BUN 14 mg/dl (7-24); CHLORIDE 107 mmol/L (98-107); CREATININE 0.91 mg/dL (0.70-1.30); POTASSIUM 3.8 mmol/L (3.5-5.1); SODIUM 141 mmol/L (136-145)
[2020-04-08 08:00] VITALS: BP 129/69
--- NOTE | 2020-04-08 10:52 | NUR ---
PT REFUSES DICHARGE PHOTOGRAPHS PER PROTOCOL. [facility] SUPERVISOR PIPE FINISHING ROUNDED AND SEEN PT.
--- NOTE | 2020-04-08 11:58 | NUR ---
Discharge instructions reviewed with patient/family. Patient receptive and verbalizes understanding. Follow-up care arranged. Written instructions given to patient/family. AMY MONTANO
[2020-04-09 19:05] LABS: HSV-2 DNA Negative (Negative)
== END 2020-04-08 11:21 | disposition home or self-care (01) | DRG 603 ==
LOC: ED 08:57 → EDHOLD 13:39 → 5E 13:39
PROVIDERS: Emergency Medicine; Podiatrist Foot & Ankle Surgery; Student in an Organized Health Care Education/Training Program; ADMIT Student in an Organized Health Care Education/Training Program
DX: L03.311 Cellulitis of abdominal wall (principal); E44.0 Moderate protein-calorie malnutrition; D53.9 Nutritional anemia, unspecified; K21.9 Gastro-esophageal reflux disease without esophagitis; F41.9 Anxiety disorder, unspecified; R79.89 Other specified abnormal findings of blood chemistry; I48.91 Unspecified atrial fibrillation; L30.9 Dermatitis, unspecified; R31.21 Asymptomatic microscopic hematuria; S80.812A Abrasion, left lower leg, initial encounter; S80.811A Abrasion, right lower leg, initial encounter; S40.812A Abrasion of left upper arm, initial encounter; S40.811A Abrasion of right upper arm, initial encounter; S00.81XA Abrasion of other part of head, initial encounter; B95.8 Unspecified staphylococcus as the cause of diseases classified elsewhere; W57.XXXA Bitten or stung by nonvenomous insect and other nonvenomous arthropods, initial encounter; Y93.89 Activity, other specified; Y92.89 Other specified places as the place of occurrence of the external cause; Y99.8 Other external cause status; Z87.891 Personal history of nicotine dependence; Z87.820 Personal history of traumatic brain injury; Z82.49 Family history of ischemic heart disease and other diseases of the circulatory system; Z83.6 Family history of other diseases of the respiratory system; Z79.899 Other long term (current) drug therapy; Z79.01 Long term (current) use of anticoagulants

== ENCOUNTER 2020-04-23 12:49 | Inpatient (IN) | payer OTHER ==
[~2020-04-23] VITALS: Ht 182.8 cm; Wt 64.2 kg
[~2020-04-23 12:49] MED LIST changes: +DOXYCYCLINE100 M3 PO; +OMNICEF300 MG PO; +QUETIAPINE FUM100 M2 PO; -QUETIAPINE FUM200 M1 PO
[2020-04-23 13:03] VITALS: BP 146/80
[2020-04-23 15:15] LABS: BASO % 0.1 % (0.0-1.0); HEMATOCRIT 39.8 % (42.0-52.0); LYMPH # 1.2 10*3/uL (1.3-4.4); LYMPH % 14.4 % (27.0-41.0); MEAN CELL VOLUME 94.1 fl (80.0-94.0); MEAN CORPUSCULAR HGB 31.4 pg (27.0-31.0); MEAN CORPUSCULAR HGB CONC 33.4 g/dl (33.0-37.0); MEAN PLATELET VOLUME 9.2 fl (9.6-12.3); MONO # 0.7 10*3/uL (0.1-1.0); MONO % 8.9 % (3.0-9.0); NEUT # 6.2 10*3/uL (2.3-7.9); NEUT % 76.4 % (47.0-73.0); PLATELET COUNT AUTOMATED 249 10*3/uL (130-400); RED BLOOD COUNT 4.23 10*6/uL (4.50-5.90); RED CELL DISTRI WIDTH 12.9 % (0-14.5); WHITE BLOOD COUNT 8.1 10*3/uL (4.8-10.8)
[2020-04-23 15:28] LABS: ALBUMIN 3.9 gm/dl (3.1-4.5); ALKALINE PHOSPHATASE 88 U/L (45-117); BUN 27 mg/dl (7-24); CHLORIDE 103 mmol/L (98-107); POTASSIUM 3.6 mmol/L (3.5-5.1); SGOT/AST 98 IU/L (3-35); SGPT/ALT 44 U/L (12-78); SODIUM 138 mmol/L (136-145); TOTAL PROTEIN 7.7 gm/dL (6.4-8.2)
[2020-04-23 15:28] LABS: BILIRUBIN NEGATIVE (NEGATIVE); BLOOD 1+ (NEGATIVE); CLARITY CLEAR (CLEAR); COLOR YELLOW (YELLOW); GLUCOSE NEGATIVE (NEGATIVE); KETONE 2+ (NEGATIVE); LEUKO ESTERASE NEGATIVE (NEGATIVE); NITRITE NEGATIVE (NEGATIVE); SPECIFIC GRAVITY 1.015 (1.005-1.030); UROBILINOGEN 0.2 E.U./dl (0.2-1.0)
[2020-04-23 15:33] LABS: BACTERIA 1+; EPITHELIAL CELLS 0-2; MUCOUS TRACE
[2020-04-23 17:00] VITALS: BP 144/89
[2020-04-23] MEDS ORDERED: COLACE100 MG PO (17:32)
[2020-04-23] MEDS ORDERED: MIRALAX119 GM PO (17:33)
[2020-04-24] VITALS: BP 112/88
[2020-04-24 08:00] VITALS: BP 107/63
[2020-04-24 20:00] VITALS: BP 107/55
[2020-04-25] VITALS: BP 123/63
[2020-04-25 08:00] VITALS: BP 110/80
[2020-04-25 16:00] VITALS: BP 120/62
[2020-04-25 20:00] VITALS: BP 146/51
[2020-04-26] VITALS: BP 144/62
[2020-04-26 08:00] VITALS: BP 134/58
[2020-04-26 12:00] VITALS: BP 116/54
[2020-04-26 16:00] VITALS: BP 122/66
[2020-04-27] VITALS: BP 92/49
[2020-04-27 08:00] VITALS: BP 123/55
[2020-04-27 12:00] VITALS: BP 124/78
[2020-04-27 16:00] VITALS: BP 125/64
[2020-04-27 20:00] VITALS: BP 120/83
[2020-04-28] VITALS: BP 110/68
[2020-04-28 08:00] VITALS: BP 127/66; BP 140/90
[2020-04-28 12:00] VITALS: BP 115/48
[2020-04-28 20:00] VITALS: BP 123/63
[2020-04-29] VITALS: BP 123/63
[2020-04-29] MEDS ORDERED: QUETIAPINE FUM100 M3 PO (07:32)
[2020-04-29] MEDS ORDERED: QUETIAPINE FUMA25 MG PO (07:37)
[2020-04-29 08:00] VITALS: BP 126/70
== END 2020-04-29 16:30 | disposition home or self-care (01) | DRG 885 ==
LOC: ED 12:49 → 4E 15:44 → EDHOLD 15:44 → 4E 16:21
PROVIDERS: Nurse Practitioner Family; ADMIT Internal Medicine
DX: F33.3 Major depressive disorder, recurrent, severe with psychotic symptoms (principal); R62.7 Adult failure to thrive; I10 Essential (primary) hypertension; F41.1 Generalized anxiety disorder; K21.0 Gastro-esophageal reflux disease with esophagitis; K59.09 Other constipation; R33.8 Other retention of urine; Z20.828 Contact with and (suspected) exposure to other viral communicable diseases; N40.1 Benign prostatic hyperplasia with lower urinary tract symptoms; Z83.6 Family history of other diseases of the respiratory system; Z82.49 Family history of ischemic heart disease and other diseases of the circulatory system; Z68.20 Body mass index [BMI] 20.0-20.9, adult

== ENCOUNTER 2020-08-23 18:45 | Inpatient (IN) | payer OTHER ==
[~2020-08-23 18:45] MED LIST changes: +COLACE100 MG PO; +MIRALAX119 GM PO; +QUETIAPINE FUM100 M3 PO; +QUETIAPINE FUMA25 MG PO
[2020-08-23 18:54] VITALS: BP 134/78
[2020-08-23 20:14] LABS: BASO % 0.4 % (0.0-1.0); EOS # 0.2 10*3/uL (0.0-0.4); EOS % 3.2 % (1.0-4.0); HEMATOCRIT 41.5 % (42.0-52.0); LYMPH # 2.2 10*3/uL (1.3-4.4); LYMPH % 38.3 % (27.0-41.0); MEAN CELL VOLUME 91.2 fl (80.0-94.0); MEAN CORPUSCULAR HGB 30.5 pg (27.0-31.0); MEAN CORPUSCULAR HGB CONC 33.5 g/dl (33.0-37.0); MEAN PLATELET VOLUME 9.3 fl (9.6-12.3); MONO # 0.6 10*3/uL (0.1-1.0); MONO % 10.2 % (3.0-9.0); NEUT # 2.7 10*3/uL (2.3-7.9); NEUT % 47.7 % (47.0-73.0); PLATELET COUNT AUTOMATED 254 10*3/uL (130-400); RED BLOOD COUNT 4.55 10*6/uL (4.50-5.90); RED CELL DISTRI WIDTH 12.4 % (0-14.5); WHITE BLOOD COUNT 5.7 10*3/uL (4.8-10.8)
[2020-08-23 20:25] VITALS: BP 111/88
[2020-08-23 20:31] LABS: BILIRUBIN Negative (Negative); BLOOD Trace-Lysed (Negative); CLARITY Clear (Clear); COLOR Yellow (Yellow); GLUCOSE Negative (Negative); KETONE Negative (Negative); LEUKO ESTERASE Negative (Negative); NITRITE Negative (Negative); PH 5.5 (4.5-8.0); UROBILINOGEN 0.2 E.U./dl (0.0-1.0)
[2020-08-23 20:37] LABS: ALBUMIN 3.7 gm/dl (3.1-4.5); ALKALINE PHOSPHATASE 78 U/L (45-117); BUN 20 mg/dl (7-24); CHLORIDE 109 mmol/L (98-107); POTASSIUM 3.6 mmol/L (3.5-5.1); SGOT/AST 22 IU/L (3-35); SGPT/ALT 23 U/L (12-78); SODIUM 141 mmol/L (136-145); TOTAL PROTEIN 6.9 gm/dL (6.4-8.2)
[2020-08-23 20:39] LABS: URINE AMPHETAMINES < 1000 (1000ng/ml); URINE BARBITURATES < 200 (200ng/ml); URINE BENZODIAZEPINES > 200 (200ng/ml); URINE CANNABINOIDS (THC) < 50 (50ng/ml); URINE COCAINE < 300 (300ng/ml); URINE METHADONE < 300 (300ng/ml); URINE OPIATES < 300 (300ng/ml)
[2020-08-23 20:40] LABS: URINE PHENCYCLIDINE < 25 (25ng/ml)
[2020-08-23 20:42] LABS: INTERNATIONAL NORM RATIO 1.1 (2.0-3.5)
[2020-08-23 20:50] LABS: ACETAMINOPHEN (TYLENOL) < 5.0 ug/ml (10-30); ETHYL ALCOHOL < 3.0 mg/dl (<3)
[2020-08-23 20:55] LABS: WBC 0-2 wbc/hpf (0-5)
[2020-08-23 22:45] VITALS: BP 98/74
== END 2020-08-23 23:04 | disposition still patient (30) | DRG 885 ==
LOC: ED 18:45 → 3N 21:41
PROVIDERS: Emergency Medicine; ADMIT Psychiatry & Neurology Psychiatry; ATTEND Psychiatry & Neurology Psychiatry
DX: F33.3 Major depressive disorder, recurrent, severe with psychotic symptoms (principal); K21.9 Gastro-esophageal reflux disease without esophagitis; F41.9 Anxiety disorder, unspecified; I48.91 Unspecified atrial fibrillation; Z87.820 Personal history of traumatic brain injury; Z87.891 Personal history of nicotine dependence; Z82.5 Family history of asthma and other chronic lower respiratory diseases; Z82.49 Family history of ischemic heart disease and other diseases of the circulatory system

== ENCOUNTER 2020-08-23 23:05 | Inpatient (IN) | payer OTHER ==
[~2020-08-23] VITALS: Ht 182.8 cm; Wt 65.8 kg
--- NOTE | 2020-08-23 22:02 | NUR ---
DR. CARMONA NOTIFIED OF NEW ADMISSION AND REVIEWED MEDICATIONS. DR. CARMONA TO BE RECONSULTED ON FRIDAY OR FRIDAY PER REQUEST.
--- NOTE | 2020-08-23 23:50 | NUR ---
JULIA CARRERO,GURMEET Miller a 80 year old M admitted via wheel chair from the EMERGENCY ROOM as a emergency 72 hr. hold admission. Arrived on unit at 2350. ALLERGIES: NKA. Vital signs are: [id number] 118/65. The client signed the following forms with stated understanding: Authorization For The Release of Medical Information, Clothing List, Consent to Voluntary Admission and Hospitalization, Consent and Release Forms/Receipt of Rights, Acknowledgement of Advance Directive Information, Behavioral Health Consent Form, and Informed Consent of Medications. Admitted under the services of Dr. CIRA MCALLISTER,[facility]. A search was conducted and hazardous articles were removed. Client was oriented to the unit. PATIENT ALERT TO PERSON, PLACE, TIME AND SITUATION. INDEPENDENT WITH ACTIVITIES OF DAILY LIVING, CONTINENT OF BOWEL AND BLADDERS. SNACK PROVIDED. DENIES HALLUINCATION, DELUSIONS, HI/SI. COMPLAINT OF LEFT LOWER BACK PAIN. PATIENT RESPONDING TO INTERNAL STIMULI. FIXED DELUSIONS: STATING "I NEED THE PARASITE CUT OUT OF MY VEINS, THEY ARE IN MY HANDS, FEET. 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 NOT RECEPTIVE OF REORIENTATION AND REALITY. REVIEWED LABS AND CHEST X-RAY WITH PATIENT. PATIENT CONTINUES WITH VISUAL AND TACTILE HALLUCINATION. AMBULATORY WITH STEADY GAIT. Q 15 MINUTE SAFETY CHECKS MAINTAINED. SKIN ASSESSMENT COMPLETED. SHOWED PATIENT HIS ROOM, PROVIDED WITH NIGHT CLOTHES. PATIENT PROVIDED WITH NEWSPAPER AND MAGAZINE. KENNEDY ANDREWS
[2020-08-24 00:16] VITALS: BP 118/63; BP 118/65
--- NOTE | 2020-08-24 00:52 | NUR ---
PATIENT COMPLAINING OF LEFT LOWER BACK PAIN, RATING PAIN 10/10. PRN TYLENOL 650MG PO GIVEN AT THIS TIME.
--- NOTE | 2020-08-24 01:39 | NUR ---
PATIENT BECOMING MORE IRRITABLE AND RESTLESS, NOT ACCEPTING REDIRECTION. PRN ATIVAN 1MG GIVEN PO PER REQUEST FOR ANXIETY.
--- NOTE | 2020-08-24 01:50 | NUR ---
NO FURTHER COMPLAINTS OF PAIN. PRN TYLENOL EFFECTIVE.
--- NOTE | 2020-08-24 02:40 | NUR ---
PATIENT RESTING IN BED WITH EYES CLOSED, NO SIGNS OF DISTRESS. PRN ATIVAN EFFECTIVE.
--- NOTE | 2020-08-24 06:23 | NUR ---
PATIENT OBSERVED ON Q 15 MIN CHECKS TO HAVE SLEPT APPROX 3.5 HOURS SINCE ADMISSION UNINTERRUPTED. NO DISTRESS NOTED.
[2020-08-24 06:53] LABS: THYROID STIM HORMONE (HS) 2.39 uIU/ml (0.358-4.75)
[2020-08-24 07:12] VITALS: BP 110/64
[2020-08-24 07:18] VITALS: BP 110/64
[2020-08-24 08:00] VITALS: BP 110/64
--- NOTE | 2020-08-24 08:13 | NUR ---
PT STATING HE PICKED UP PARASITES IN THE SERVICE AND HE IS GETTING $600 A MONTH COMPENSATION. a&O X4. ANGRY AND IRRITABLE. AGITATED. INTERACTIVE WITH PEERS. DEMANDING AT TIMES. PT STATING HIS LEFT LEG IS SWOLLEN AND ASKED THIS NURSE IF WE WILL BE TAKING PICTURES OF IT. THIS NURSE ASSESSED PT'S LEG AND IT WAS NOT SWOLLEN AND NO AREAS NOTED TO HIS LEFT LEG. PT STATED HE HAS PARASITES IN HIS VEINS IN HIS ARM AND POINTED TO THEM AND STATED THEY ARE HARD. EXPLAIONED TO THE PT THAT IS HIS VEINS AND THERE WERE NO PARASITES. PT IS ARGUMENTATIVE AND STATED YES THEY ARE. PT STATED HE WANTED TO LEAVE TODAY SO HE COULD GO TO [facility] BECAUSE THEY ARE THE ONLY ONES THAT CAN TAKE THE PARASITES OUT. PT NOT ABLE TO BE REDIRECTED. PT STATED HE JOGS WHEN HOME. EXPLAINED TO PT HE IS MORE THAN WELCOME TO WALK UP AND DOWN THE CAPPS. PT STARTING TO BE DISRUPTIVE IN THE DININGROOM AND GETTING OTHER PTS UPSET. MEDICATION COMPLIANT WITHOUT DIFFICULTY. AMBULATORY WITH A STEADY GAIT. CONTINUE TO REDIRECT PT WHEN NEEDED AND ENCOURAGE MEDICATION COMPLIANCE. PT CONTINUALLY ASKS WHEN THE DR IS IN COMING IN AND STATES HE IS LEAVING TODAY ONCE THE DR COMES IN. PT TALKING ABOUT HOW THE DR ATTEMPTED TO TAKE HIS SEROQUEL OFF HIM UNTIL HE THREATENED TO [place] AND THEN THE DR GAVE IT BACK. EXPLAINED TO THE PT THAT PART OF THE TREATMENT IS FINDING A NEW MEDICATION REGIMEN THAT WORKS FOR HIM. PT STATED THE MEDICATION WAS WORKING. THIS NURSE EXPLAINED TO THE PT THAT THE MEDICATION WAS NOT WORKING AND THAT IS WHY HE IS HERE. ENSURED THE PT WE WILL FIND A MEDICATION SUITABLE FOR HIM AND HE WILL BE RELEWASED WHEN STABILIZED.
--- NOTE | 2020-08-24 08:43 | NUR ---
DR DENIS ROUNDED VIA TELEHEALTH, NEW ORDERS RECEIVED.
[2020-08-24 18:57] VITALS: BP 100/55
--- NOTE | 2020-08-24 21:06 | NUR ---
JOVIAL AND INTERACTIVE. PREOCCUPIED WITH SPANKINGS HE THINKS HE IS AGING BACKWARD AND KIDS SHOULD BE SPANKED. ALSO UNABLE TO REDIRECT FROM THOUGHTS OF PARASITES IN VEINS. SHOWED ME AREAS I EXPLANED WERE NODULES AND ONE ON ANKLE THAT WAS A VEIN. REFUSED TO REDIRECT. MEDICATION EDUCATION PROVIDED WITH MED PASS. NO QUESTIONS OFFERD. WILL MONITOR FOR CHANGES IN MOOD/BEHAVIOR AND Q15 MIN AND PRN FOR SAFETY
--- NOTE | 2020-08-25 00:21 | NUR ---
24 HR chart check completed.
--- NOTE | 2020-08-25 06:47 | NUR ---
EASILY AWAKENED AND PLEASENT. MEDICATION COMPLIANT
[2020-08-25 06:49] VITALS: BP 108/68
--- NOTE | 2020-08-25 06:49 | NUR ---
SLEPT AN INTERUPTED 7 HOURS
--- NOTE | 2020-08-25 08:00 | NUR ---
Patient resting quietly with no c/o discomfort. Respirations easy and regular. Vital signs stable. No overt distress. KATHE YEUNG
--- NOTE | 2020-08-25 10:08 | NUR ---
ADMINISTERED TYLENOL PRN FOR 10/10 PAIN TO LOWER BACK AND LEFT LEG. WILL CONTINUE TO MONITOR.
--- NOTE | 2020-08-25 11:54 | NUR ---
PER ORDER, PT SWABBED NOVEL CORONAVIRUS PER POLICY. PT TOLERATED WELL.
--- NOTE | 2020-08-25 14:50 | NUR ---
PM GROUP PT IN DINING ROOM WITH MALE PEER WATCHING BASKETBALL, HAVING SNACK, INTERACTING APPROPRIATELY.
--- NOTE | 2020-08-25 18:34 | NUR ---
PT IS ALERT, ORIENTED X 3. PT CONTINUES WITH BELIEF THAT HE HAS BUGS IN HIS VEINS STATING "IF THEY HAD JUST KEPT ME IN THE HOSPITAL FOR A FEW MORE DAYS THEY COULD HAVE GOTTEN RID OF THEM". PT ALSO OCCASIONALLY SEXUALLY INAPPROPRIATE MAKING COMMENTS SUCH "I DIDN'T SEE YOU BEFORE, YOU SURE ARE PRETTY". PT RECEPTIVE TO REDIRECTION. PT SHOWERED TODAY AND STATED HE "FEELS SO MUCH BETTER". PT CONTINUES WIHT HYPERVERBAL, GRANDIOSE THOUGHT, STATING "I PAINT THOSE BOEINGS. I USED TO BE A BIG WIG IN THE ". PT AGAIN RECEPTIVE TO REDIRECTION. MEDICATION COMPLIANT, EDUCATION PROVIDED. Q15 MIN MONITORING PER POLICY FOR SAFETY.
[2020-08-25 19:04] VITALS: BP 119/68
--- NOTE | 2020-08-25 21:05 | NUR ---
INCREASED AGGITATION WITH ALL REDIRECTION RELATING TO PARASITES. STATE "YOU DON'T KNOW ANYTING. THAT FEMALE DOCTOR SAID SHE IS GING TO SEND THEM FOR TESTING". MEDICATION EDUCATION COMPLETED PRIOR TO GIVING.. HE AGAIN CAME TO NURSES STATION COMPLAINING ABOUT PARASITES IN HIS ARM. (HE IS POINTING TO A VEIN WITH A NODULE. EMOTIONAL SUPPORT PROVIDED.
--- NOTE | 2020-08-26 05:33 | NUR ---
SLELPT AN INTERUPTED 7 HOURS.
[2020-08-26 07:51] VITALS: BP 103/64
--- NOTE | 2020-08-26 08:00 | NUR ---
Patient resting quietly with no c/o discomfort. Respirations easy and regular. Vital signs stable. No overt distress. KATHE YEUNG
--- NOTE | 2020-08-26 11:11 | NUR ---
AM GROUP PT WAS PRESENT FOR AM GROUP, PAINTING AND LISTENING TO MUSIC. PT PARTICIPATED AND INTERACTED APPROPRIATELY WITH STAFF, STUDENTS, AND PEERS.
--- NOTE | 2020-08-26 11:57 | NUR ---
Faxed [facility] health admission clinical to [facility]. Awaiting response.
[2020-08-26 20:00] VITALS: BP 98/66
--- NOTE | 2020-08-26 22:00 | NUR ---
Patient alert and oriented x3. Mood calm,cooperative and pleasant. Patient denies any SI/HI or hallucinations. No s/s of any responding to internal stimuli noted at this time. Patient compliant with HS medications without any difficulty. Provided 1:1 for emotional support. Redirected when needed. Plan to continue to encourage medication compliance. Will also continue to provided emotional support and redirect when needed/appropriate. Will continue to monitor moods/behaviors. Q 15 minute safety checks continued and maintained. See [facility] flowsheet for further documentation.
--- NOTE | 2020-08-27 05:24 | NUR ---
Patient slept approx. 7 hours throughout shift. Q 15 minute safety checks continued and maintained.
[2020-08-27 08:00] VITALS: BP 117/56
--- NOTE | 2020-08-27 15:14 | NUR ---
P: FIXED DELUSIONS WITH HAVING PARASITES IN VEIN, STATED "PARASITES ARE LESS" PATIENT STATE "I WANT TO GO TO [facility] TO GET THEM CUT OUT" HYPERVERBAL IN DINING ROOM WITH OTHER PATIENTS, HAS MULTIPLE REQUEST ONE RIGHT AFTER THE OTHER. I: ONE ON ONE FOR EMOTIONAL SUPPORT, REDIRECTION, MEDICATION EDUCATION PROVIDED R: EFFECTIVE. PATIENT IS ALERT AND ORIENTED TO PERSON, PLACE, TIME AND SITUATION. MOOD IS SLIGHTLY IRRITABLE AND DEMANDING AT TIME; HYPERVERBAL. DENIES ANY HALLUCINATIONS, DELUSIONS, HI/SI OR PAIN. PATIENT CONTINUES WITH FIXED DELUSIONS OF PARASITES IN VEINS. UNABLE TO REDIRECTION/ORIENT REGARDING THIS ISSUE, PATIENT BECOMES IRRITABLE. SPACE PROVIDED. MEDICATION COMPLAINT WITH EDUCATION PROVIDED. Q 15 MINUTE SAFETY CHECKS MAINTAINED. INDEPENDENT WITH ACTIVITIES OF DAILY LIVING, CONTINENT OF BOWEL AND BLADDER, SET UP FOR MEALS, INTAKES ARE GOOD WITH ADEQUATE FLUIDS. INTERACTIVE WITH STAFF AND OTHER PATIENTS. PARTICIPATED IN MORNING GROUP SESSION. CONTINUE TO MONITOR FOR HALLUCINATIONS, DELUSION, MOOD AND MEDICATION COMPLAINCE. PROVIDE ONE ON ONE, REDIRECTION/ORIENTATION, MEDICATION COMPLIANCE AND SPACE NEEDED. P:
--- NOTE | 2020-08-27 15:48 | NUR ---
Shift chart check completed.
[2020-08-27 19:30] VITALS: BP 126/64
--- NOTE | 2020-08-27 23:00 | NUR ---
P-PREOCCUPIED, INTRUSIVE, DELUSIONAL. I-PROVIDE 1:1 WITH THERAPEUTIC INTERVENTIONS. PRESENT REALITY AND REORIENT. PROVIDE APPROPRIATE REDIRECTION. ENCOURAGE MEDICATION COMPLIANCE AND EDUCATE. MONITOR SLEEP. R-PATIENT ALERT AND ORIENTED X4. PT PREOCCUPIED AND INTRUSIVE WITH CARE OF OTHER PEERS THIS HS, REQUIRES FREQUENT REDIRECTION ON LIMIT SETTING. PT ALSO CONTINUES TO HAVE FIXED DELUSIONS OF PARASITES BEING IN HIS SKIN, ALTHOUGH STATES THEY HAVE LESSENED FOR HIM. PT OTHERWISE CALM, PLEASANT, AND INTERACTIVE. SAT IN DINING ROOM TO SOCIALIZE WITH A PEER AND TO HAVE HS SNACK. PT MEDICATION COMPLIANT WITHOUT DIFFICULTY AFTER REVIEW. PT DENIES SI/HI OR PAIN. PT AMBULATORY WITH A STEADY GAIT, CONTINENT OF BOWEL AND BLADDER, INDEPENDENT WITH ADLS. NO DISTRESS NOTED. P-CONTINUE TO MONITOR MOOD AND BEHAVIORS AND MAINTAIN Q 15 MIN CHECKS AND PRN FOR SAFETY.
--- NOTE | 2020-08-28 05:15 | NUR ---
24 HOUR CHART CHECK COMPLETED.
--- NOTE | 2020-08-28 05:30 | NUR ---
PATIENT OBSERVED ON Q 15 MIN CHECKS TO HAVE SLEPT APPROX 8 HOURS UNINTERRUPTED. NO DISTRESS NOTED.
[2020-08-28 07:36] VITALS: BP 112/64
--- NOTE | 2020-08-28 09:00 | NUR ---
Treatment Plan meeting was held this a.m. with JAVIER Cuellar RN, AT and Condominium Manager in attendance. Plan for discharge at the end of the week or beginning of next week. Will Follow with Pt. today to discuss discharge Plans.
--- NOTE | 2020-08-28 11:52 | NUR ---
ASSESSMENT AND AM GROUP PT WAS A BIT AGITATED AT THE START OF ASSESSMENT. PT STATED, "I HAVE THESE PARASITES CRAWLING UNDER MY SKIN AND THEIR GOING TO GET INTO MY HEART IF THEY AREN'T TAKEN OUT! THESE DUMMIES HERE DON'T KNOW ANYTHING ABOUT THEM, BUT MY BROTHER HAD THEM REMOVED AT [place]. THAT'S WHERE I'M GOING TO HAVE TO GO SOON I CAN GET OUT OF HERE!" PT WAS ASSURED THAT I AM NOT MEDICAL STAFF AND HAVE NOTHING TO DO WITH HIS PHYSICAL ISSUES. PT WAS RECEPTIVE THEN AND WAS COOPERATIVE AND OPEN WITH THE ASSESSMENT. AM GROUP PT ATTENDED MORNING GROUP THERAPY AND PARTICIPATED BY PLAYING COPING SKILLS JENTugg. PT WAS IN A GOOD MOOD AND MADE NO MORE REFERENCE TO THE PARASITES WHILE IN GROUP.
--- NOTE | 2020-08-28 11:53 | NUR ---
DR. CARMONA ON UNIT TO ASSESS PATIENT.
--- NOTE | 2020-08-28 13:57 | NUR ---
Faxed continued review stay clinical to [facility]
--- NOTE | 2020-08-28 15:42 | NUR ---
PM GROUP/REMINISCING PT ATTENDED AFTERNOON GROUP THERAPY AND PARTICIPATED IN REMINISCING ABOUT CHILDHOOD PARMINDER TRADITIONS. PT WAS HYPERVERBAL BUT EXPRESSED NO DELUSIONS OR MENTION OF THE PARASITES UNDER HIS SKIN.
--- NOTE | 2020-08-28 15:45 | NUR ---
P: FIXED DELUSIONS WITH HAVING "PARASITES IN VEIN". PATIENT HAS A CALM DEMEANOR, LESS INTRUSIVE WITH OTHER PATIENTS. I: ONE ON ONE FOR EMOTIONAL SUPPORT, REDIRECTION, MEDICATION EDUCATION PROVIDED R: EFFECTIVE. PATIENT IS ALERT AND ORIENTED TO PERSON, PLACE, TIME AND SITUATION. MOOD IS LESS ANXIOUS; HYPERVERBAL WHEN TALKING WITH STAFF AND OTHER PATIENTS. DENIES ANY HALLUCINATIONS, DELUSIONS, HI/SI OR PAIN. PATIENT CONTINUES WITH FIXED DELUSIONS OF PARASITES IN VEINS. MEDICATION COMPLAINT WITH EDUCATION PROVIDED. Q 15 MINUTE SAFETY CHECKS MAINTAINED. INDEPENDENT WITH ACTIVITIES OF DAILY LIVING, CONTINENT OF BOWEL AND BLADDER, SET UP FOR MEALS, INTAKES ARE GOOD WITH ADEQUATE FLUIDS. INTERACTIVE WITH STAFF AND OTHER PATIENTS. PARTICIPATED IN GROUP SESSIONS. AMBULATORY WITH STEADY GAIT. P: CONTINUE TO MONITOR FOR HALLUCINATIONS, DELUSION, MOOD AND MEDICATION COMPLAINCE. PROVIDE ONE ON ONE, REDIRECTION NEEDED.
[2020-08-28 19:01] VITALS: BP 107/52
[2020-08-28 19:30] VITALS: BP 118/78
--- NOTE | 2020-08-28 22:51 | NUR ---
PATIENT WITH NO ADVERSE BEHAVIORS. PATIENT ALERT AND ORIENTED X4. PT CALM, PLEASANT, AND INTERACTIVE THIS HS. PT SAT BRIEFLY IN DINING ROOM TO SOCIALIZE WITH A PEER AND HAVE HS SNACK BEFORE RETURNING TO HIS ROOM AT APPROX 2100 TO LAY DOWN. DURING 1:1 PATIENT STATED THAT HE HAD A DECENT DAY WITH NO COMPLAINTS, JUST READY FOR BED. PT CONTINUES TO HAVE A FIXATION ON HAVING PARASITES IN SKIN, BUT STATES THEY ARE GETTING BETTER, REMAINS UNRECEPTIVE TO REALITY PRESENTATION. PT DENIES SI/HI AND PAIN. AMBULATORY WITH A STEADY GAIT, INDEPENDENT IN ADLS, CONTINENT OF BOWEL AND BLADDER. PATIENT CURRENTLY LAYING DOWN WITH EYES CLOSED, RESPIRATIONS EASY AND REGULAR, NO DISTRESS NOTED. PLAN IS TO CONTINUE TO MONITOR MOOD AND BEHAVIORS, MAINTAIN Q 15 MIN CHECKS AND PRN FOR SAFETY.
--- NOTE | 2020-08-29 05:43 | NUR ---
SLEPT APPROX 8 HOURS UNINTERRUPTED. NO DISTRESS NOTED.
[2020-08-29 07:50] VITALS: BP 118/62
--- NOTE | 2020-08-29 09:00 | NUR ---
Treatment Plan meeting was held this a.m. with JAVIER Cuellar, RN, AT, LA-S and Route Salesman And Driver in attendance. Plan for discharge Friday. Pt. will return home.
--- NOTE | 2020-08-29 10:30 | NUR ---
DR. CARMONA ON UNIT TO ASSESS PATIENT.
--- NOTE | 2020-08-29 11:35 | NUR ---
AM GROUP/EXERCISE AND LIGHT THERAPY PT ATTENDED MORNING GROUP THERAPY AND PARTICIPATED IN ALL ACTIVITIES. PT WAS TALKATIVE AND WOULD GET OFF SUBJECT BUT WAS EASILY REDIRECTED. PT EXPRESSED NO HALLUCINATIONS DURING GROUP.
--- NOTE | 2020-08-29 11:49 | NUR ---
Received call from Edwin hernandez [place]. Given verbal clinical updates. He will review case and fax determination.
--- NOTE | 2020-08-29 13:00 | NUR ---
IP 7 days mp per Becki hernandez [facility], NRD 08/29. Ref # [id number]
--- NOTE | 2020-08-29 15:40 | NUR ---
PM GROUP/MOVIE PT ATTENDED AFTERNOON GROUP THERAPY AND PARTICIPATED BY WATCHING THE MOVIE AND HAVING A SNACK. PT EXHIBITED NO ADVERSE BEHAVIORS WHILE IN GROUP. PT MADE NO MENTION OF "PARASITES" WHILE IN GROUP.
--- NOTE | 2020-08-29 16:39 | NUR ---
PT A&O X4. STABLE MOOD. CONTINUES TO BE HYPERVERBAL. INTRUSIVE WITH OTHER PT CARE. PT REDIRECTED MANY TIMES WHEN BEING INTRUSIVE. PT TOLD ANOTHER MALE PT THIS NURSE WAS GOING TO GIVE HIM A SHOT AND THEN STATED THIS NURSE WAS GOING TO SHOOT HIM. THIS PT WAS REDIRECTED AT THIS TIME. NO HALLUCINATIONS NOTED. PT DENIES SI/HI, SADNESS, AND DEPRESSION. BEHAVIORS MONITORED WITH Q15 MINUTE SAFETY CHECKS. MEDICATION COMPLIANT WITHOUT DIFFICULTY. GAIT STEADY. CONTINUE TO MONITOR BEHAVIORS WITH Q15 SAFETY CHECKS AND OFFER 1:1 FOR THERAPEUTIC COMMUNICATION. SEE [facility] FLOWSHEET FOR SPECIFIC MONITORING. PT PARTICIPATING AND INTERACTIVE WITH PEERS. CONTINUE TO ENCOURAGE MEDICATION COMPLIANCE AND EDUCATE ON MEDICATIONS WHEN NEEDED.
[2020-08-29 19:20] VITALS: BP 126/69
--- NOTE | 2020-08-30 03:09 | NUR ---
P-PREOCCUPIED, INTRUSIVE I-REDIRECTION WITH 1:1 THERAPEUTIC INTERVENTIONS AND PRESENT REALITY. EDUCATE AND ENCOURAGE MEDICATION COMPLIANCE R-PATIENT MEDICATION COMPLIANT AT HS. PATIENT PROVIDED NOURISHMENT AND FLUIDS AT HS. PATIENT INTERACTING WITH PEERS IN DINING ROOM. PATIENT ATTEMPTING TO EXCERCISE IN DINING AREA AND ATTEMPTING TO ENCOURAGE PATIENTS TO PARTICIPATE. PATIENT INTRUSIVE WITH OTHER PEERS IN DINING AREA. PATIENT PREOCCUPIED WITH BOWELS AND REQUESTING MILK OF MAGNESIA. PATIENT STATING "I HAVE TO TAKE THIS EVERYDAY FOR MY BOWELS". PATIENT WITH NO HALLUCINATIONS OR DELUSIONS. PATIENT WITH NO SUICIDAL OR HOMICIDAL IDEATIONS P-CONTINUE TO ENCOURAGE MEDICATION COMPLIANCE, CONTINUE TO PRESENT REALITY, ENCOURAGE GROUP THERAPY WHILE AWAKE
--- NOTE | 2020-08-30 06:23 | NUR ---
PATIENT SLEPT >8 HOURS OF UNINTERRRUPTED SLEEP THROUGHOUT SHIFT. Q 15 MINUTE CHECKS MAINTAINED. 24 HR chart check completed.
[2020-08-30 06:56] VITALS: BP 111/66
--- NOTE | 2020-08-30 07:54 | NUR ---
Pt awake, alert and verbal. Feeding self breakfast in dining room with peers. Resps easy and even on room air. No distress noted.
--- NOTE | 2020-08-30 09:00 | NUR ---
Treatment Plan meeting was held this a.m. with JAVIER Cuellar, RN, AT, LA-S and Conveyor Attendant. Plan for discharge Friday. Pt. will return home at discharge.
--- NOTE | 2020-08-30 10:27 | NUR ---
ON UNIT TO SEE PT AT THIS TIME. AWARE OF PT'S C/O PAIN AND DISCOLORED LEFT GREAT TOENAIL. NO OPEN AREAS NOTED. NO S/S INFECTION NOTED. ASSESSED WHILE ON UNIT. NNO
--- NOTE | 2020-08-30 11:00 | NUR ---
P- DELUSIONAL THOUGHTS I- PSYCHIATRIC ASSESSMENT COMPLETED. ADMINISTERED MEDICATIONS ORDERED, MONITOR PT RESPONSE. PROVIDE REORIENTATION/REDIRECTION NEEDED. ENCOURAGE PROPER ADL CARE AND NUTRITIONAL INTAKES. ENCOURAGE PT TO ATTEND AND PARTICIPATE IN [place]. R- PT IS ALERT AND ORIENTED X4. MEMORY APPEARS TO BE INTACT. RESPS EASY AND EVEN ON ROOM AIR. PT REPORTS FEELING DEPRESSED AND ANXIOUS. PT DOES NOT APPEAR OUTWARDLY ANXIOUS AT TIME OF INTERVIEW. PT DENIES FEELING HOPELESS. PT DENIES SI/HI, INTENT OR PLAN. PT DENIES HALLUCINATIONS, NO RESPONSE TO INTERNAL STIMULI NOTED. PT APPEARS DELUSIONAL, STATES HIS WHOLE LEFT LEG IS IN PAIN AND THE TOE IS BLACK WHICH MAKES HIM UNABLE TO WALK. UPON ASSESSMENT, PT'S LEFT GREAT TOENAIL IS DISCOLORED. TOES ARE NORMAL IN COLOR. GOOD PEDAL PULSES. NO S/S INJURY, EDEMA OR INFECTION NOTED. PT MOVING SELF WITHOUT DIFFICULTY. TYLENOL GIVEN PER PT REQUEST FOR C/O PAIN. PT THEN NOTED WALKING IN HALLWAY A SHORT TIME LATER WITHOUT DIFFICULTY. PT ATTENDING GROUP AT THIS TIME, NO DISTRESS NOTED. P- PLAN TO CONTINUE CURRENT TREATMENT.
--- NOTE | 2020-08-30 11:45 | NUR ---
AM GROUP/LIGHT THERAPY AND EXERCISE PT ATTENDED MORNING GROUP THERAPY AND PARTICIPATED IN ALL ACTIVITIES. PT WAS LESS HYPERVERBAL THIS MORNING COMPARED TO YESTERDAY. PT EXPRESSED NO HALLUCINATIONS WHILE IN GROUP. PT IS A BIT INTRUSIVE WITH OTHER PATIENTS CARE BUT IS EASILY REDIRECTED.
--- NOTE | 2020-08-30 14:58 | NUR ---
Faxed continued review stay clinical to [facility]. Ref # [id number]. Awaiting response.
--- NOTE | 2020-08-30 15:38 | NUR ---
PM GROUP PT DID NOT ATTEND AFTERNOON GROUP THERAPY. PT WAS IN BED RESTING.
[2020-08-30 19:01] VITALS: BP 98/58
--- NOTE | 2020-08-30 21:37 | NUR ---
P--CONFUSION/INTRUSIVENESS I--MEDICATION EDUCATION PROVIDED. TALKED MINIMALLY HE IS QUIET TONIGHT. PROVIDED SNACK. ANSWERED QUESTIONS. R--I AM GOOD. I AM GOING TO READ IN MY ROOM. MEDICATION COMPLIANT. NO QUESTIONS OFFERED. MEDICATION COMPLIANT. GAIT STEADY P--MONITOR FOR CHANGES IN MOOD/BEHAVIOR AND Q15 MINS AND PRN FOR SAFETY. OFFER EMOTIONAL SUPPORT
--- NOTE | 2020-08-30 22:51 | NUR ---
C/O POOR SLEEP AND SIDE PAIN. REQUESTING DILAUDID. TYLENOL GIVEN PER ORDERS
--- NOTE | 2020-08-30 23:56 | NUR ---
APPEARS TYLENOL EFFECTIVE. EYES CLOSED, RESP EASY NON LABORED. NO S/S OF PAIN
--- NOTE | 2020-08-31 06:14 | NUR ---
SLEPT OVER 7 HOURS AFTER GETTING TYLENOL LAST NIGHT. MOVED SELF AROUND IN BED
[2020-08-31 06:39] VITALS: BP 115/68
--- NOTE | 2020-08-31 07:45 | NUR ---
Patient in dining room with peers eating breakfast with no c/o discomfort. Respirations easy and regular. Vital signs stable. No overt distress. KATHE YEUNG
--- NOTE | 2020-08-31 09:48 | NUR ---
Received message from Becki Kuhn [facility]. IP 2 additional days mp, NRD 09/01. Ref # [id number]
--- NOTE | 2020-08-31 10:37 | NUR ---
on unit to see pt.
--- NOTE | 2020-08-31 11:42 | NUR ---
AM GROUP/LEISURE INTERESTS PT ATTENDED MORNING GROUP THERAPY AND PARTICIPATED BY READING THE NEWSPAPER, LISTENING TO MUSIC AND SOCIALIZING. PT EXHIBITED NO ADVERSE BEHAVIORS WHILE IN GROUP.
--- NOTE | 2020-08-31 14:56 | NUR ---
NO ADVERSE MOODS OR BEHAVIORS THIS SHIFT. PT IS A&OX4. MEMORY APPEARS TO BE INTACT. RESPS EASY AND EVEN ON ROOM AIR. MOOD STABLE, AFFECT IS BROAD RANGE AND APPROPRIATE. SPEECH IS WNL, COHERENT, ABLE TO MAKE NEEDS KNOWN WITHOUT DIFFICULTY. PT DENIES SI/HI, INTENT OR PLAN. NO HALLUCINATIONS, DELUSIONS OR PARANOIA NOTED. PT SHOWERED THIS AM WITHOUT DIFFICULTY. NO DISTRESS NOTED. CALM AND COOPERATIVE. INTERACTS WELL WITH STAFF AND PEERS. PLAN TO CONTINUE CURRENT TREATMENT.
[2020-08-31 19:47] VITALS: BP 118/72
--- NOTE | 2020-08-31 21:23 | NUR ---
Patient alert and oriented x3. Mood calm,cooperative and pleasant. Patient denies any SI/HI or hallucinations. No s/s of any responding to internal stimuli noted at this time. Patient compliant with HS medications without any difficulty. Provided 1:1 for emotional support. Redirected when needed. Plan to continue to encourage medication compliance. Will also continue to provided emotional support and redirect when needed/appropriate. Will continue to monitor moods/behaviors. Q 15 minute safety checks continued and maintained. See [facility] flowsheet for further documentation.
--- NOTE | 2020-09-01 00:23 | NUR ---
24 HR chart check completed.
--- NOTE | 2020-09-01 05:59 | NUR ---
Patient slept approx. 7 hours throughout shift. Q 15 minute safety checks continued and maintained.
[2020-09-01 08:00] VITALS: BP 116/73
--- NOTE | 2020-09-01 09:08 | NUR ---
PT REQUESTING TYLENOL FOR C/O HEADACHE. PRN TYLENOL 650MG GIVEN AT THIS TIME.
[2020-09-01] MEDS ORDERED: DULOXETINE HCL60 MG PO (09:11)
[2020-09-01] MEDS ORDERED: RISPERIDONE1 MG PO (09:11)
[2020-09-01] MEDS ORDERED: NEURONTIN300 MG PO (09:11)
[2020-09-01] MEDS ORDERED: THERA TABLET400 MCG PO (09:12)
[2020-09-01] MEDS ORDERED: ALPRAZOLAM0.25 M2 PO (09:12)
[2020-09-01] MEDS ORDERED: HYDROXYZINE HCL25 MG PO (09:12)
[2020-09-01] MEDS ORDERED: RISPERIDONE2 M2 PO (09:12)
--- NOTE | 2020-09-01 11:23 | NUR ---
SPOKE TO DR CARMONA TO MAKE AWARE OF PATIENTS DISCHARGE TODAY. STATES HE WILL BE IN TO SEE PATIENT.
--- NOTE | 2020-09-01 11:27 | NUR ---
Patient discharged today to [facility]. Follow-up will be with Dr Jackson, visiting psychiatrist.
--- NOTE | 2020-09-01 11:42 | NUR ---
AM GROUP/MOVIE PT ATTENDED MORNING GROUP THERAPY AND PARTICIPATED BY REQUESTING AND WATCHING A MOVIE. PT EXHIBITED NO ADVERSE BEHAVIORS WHILE IN GROUP. PT WAS QUIET AND FOCUSED.
--- NOTE | 2020-09-01 13:13 | NUR ---
PATIENT DISCHARGED AT THIS TIME VIA WHEELCHAIR AND 1 RN. ALL BELONGINGS AND DISCHARGE PAPERWORK LEFT WITH PATIENT. PATIENT PICKED UP [facility] BY FAMILY VIA PERSONAL TRANSPORTATION.
--- NOTE | 2020-09-01 14:29 | NUR ---
Faxed discharge instructions to Becki at [facility]. Spoke to Becki to notified of discharge today.
== END 2020-09-01 13:13 | disposition home or self-care (01) | DRG 885 ==
LOC: 3N 23:05
PROVIDERS: ADMIT Psychiatry & Neurology Psychiatry; ATTEND Psychiatry & Neurology Psychiatry
DX: F33.3 Major depressive disorder, recurrent, severe with psychotic symptoms (principal); I48.21 Permanent atrial fibrillation; F41.1 Generalized anxiety disorder; N40.1 Benign prostatic hyperplasia with lower urinary tract symptoms; R33.8 Other retention of urine; K59.09 Other constipation; L60.8 Other nail disorders; K21.00 Gastro-esophageal reflux disease with esophagitis, without bleeding; R26.89 Other abnormalities of gait and mobility; Z20.828 Contact with and (suspected) exposure to other viral communicable diseases

== ENCOUNTER → 2020-12-12 | Outpatient (CLI) | payer OTHER ==
[~2020-12-12] MED LIST changes: +ALPRAZOLAM0.25 M2 PO; +DULOXETINE HCL60 MG PO; +HYDROXYZINE HCL25 MG PO; +NEURONTIN300 MG PO; +RISPERIDONE1 MG PO; +RISPERIDONE2 M2 PO; +THERA TABLET400 MCG PO
[2020-12-12 13:23] LABS: HEMATOCRIT 41.5 % (42.0-52.0); MEAN CELL VOLUME 94.3 fl (80.0-94.0); MEAN CORPUSCULAR HGB 31.1 pg (27.0-31.0); RED BLOOD COUNT 4.4 10*6/uL (4.50-5.90); RED CELL DISTRI WIDTH 13.1 % (0-14.5)
[2020-12-12 13:41] LABS: ALBUMIN 3.8 gm/dl (3.1-4.5); ALKALINE PHOSPHATASE 85 U/L (45-117); BUN 17 mg/dl (7-24); CHLORIDE 107 mmol/L (98-107); CHOLESTEROL 168 mg/dL (<200); CREATININE 1.01 mg/dL (0.70-1.30); FREE T4 1.08 ng/dl (0.76-1.46); SGOT/AST 19 IU/L (3-35); SGPT/ALT 24 U/L (12-78); SODIUM 141 mmol/L (136-145); TRIGLYCERIDES 87 mg/dl (<150); VLDL CHOLESTEROL 17 mg/dL (6-40)
[2020-12-12 13:45] LABS: HDL CHOLESTEROL 70 mg/dl (40-60); LDL CHOLESTEROL 81 mg/dL (9-159); TOTAL PROTEIN 7.3 gm/dL (6.4-8.2)
== END | disposition home or self-care (01) ==
LOC: LAB 12:58
PROVIDERS: ATTEND Family Medicine
DX: Z12.5 Encounter for screening for malignant neoplasm of prostate (principal); I10 Essential (primary) hypertension; I48.91 Unspecified atrial fibrillation; F41.1 Generalized anxiety disorder; E74.00 Glycogen storage disease, unspecified; R23.3 Spontaneous ecchymoses; F99 Mental disorder, not otherwise specified

== ENCOUNTER → 2021-02-05 | Outpatient (CLI) | payer OTHER ==
[2021-02-05 14:52] LABS: ALBUMIN 3.6 gm/dl (3.1-4.5); ALKALINE PHOSPHATASE 89 U/L (45-117); BUN 16 mg/dl (7-24); CHLORIDE 109 mmol/L (98-107); CREATININE 0.92 mg/dL (0.70-1.30); POTASSIUM 4.1 mmol/L (3.5-5.1); SGOT/AST 15 IU/L (3-35); SGPT/ALT 20 U/L (12-78); SODIUM 140 mmol/L (136-145)
== END | disposition home or self-care (01) ==
LOC: LAB 13:47
PROVIDERS: ATTEND Family Medicine
DX: I10 Essential (primary) hypertension (principal); I73.9 Peripheral vascular disease, unspecified; R06.02 Shortness of breath; M79.606 Pain in leg, unspecified

== ENCOUNTER 2021-05-02 22:53 | Inpatient (IN) | payer OTHER ==
[~2021-05-02] VITALS: Ht 182.9 cm; Wt 69.2 kg
[2021-05-02 23:24] VITALS: BP 129/78
[2021-05-02 23:47] LABS: BASO % 0.6 % (0.0-1.0); EOS # 0.2 10*3/uL (0.0-0.4); HEMATOCRIT 37.5 % (42.0-52.0); LYMPH # 1.7 10*3/uL (1.3-4.4); MEAN CELL VOLUME 94.7 fl (80.0-94.0); MEAN CORPUSCULAR HGB 31.3 pg (27.0-31.0); MEAN CORPUSCULAR HGB CONC 33.1 g/dl (33.0-37.0); MEAN PLATELET VOLUME 9.3 fl (9.6-12.3); MONO # 0.6 10*3/uL (0.1-1.0); MONO % 12.1 % (3.0-9.0); NEUT # 2.7 10*3/uL (2.3-7.9); NEUT % 51.1 % (47.0-73.0); PLATELET COUNT AUTOMATED 229 10*3/uL (130-400); RED BLOOD COUNT 3.96 10*6/uL (4.50-5.90); RED CELL DISTRI WIDTH 12.2 % (0-14.5); WHITE BLOOD COUNT 5.3 10*3/uL (4.8-10.8)
[2021-05-03] VITALS (7 sets, daily range): BP systolic 99–143; BP diastolic 57–78
[2021-05-03 00:06] LABS: ALBUMIN 3.5 gm/dl (3.1-4.5); ALKALINE PHOSPHATASE 91 U/L (45-117); BUN 22 mg/dl (7-24); CHLORIDE 108 mmol/L (98-107); CREATININE 1.15 mg/dL (0.70-1.30); POTASSIUM 3.9 mmol/L (3.5-5.1); SGOT/AST 41 IU/L (3-35); SGPT/ALT 26 U/L (12-78); SODIUM 139 mmol/L (136-145); TOTAL PROTEIN 6.8 gm/dL (6.4-8.2)
[2021-05-03] MEDS ORDERED: SEROQUEL100 MG PO (02:12)
[2021-05-03] MEDS ORDERED: ASPIRIN ADULT L81 M2 PO (02:13)
[2021-05-04] VITALS: BP 103/57
[2021-05-04 08:00] VITALS: BP 122/61
[2021-05-04 12:00] VITALS: BP 105/46
[2021-05-04 16:00] VITALS: BP 118/48
[2021-05-05] VITALS: BP 102/46
[2021-05-05 07:49] LABS: BASO % 0.7 % (0.0-1.0); EOS # 0.3 10*3/uL (0.0-0.4); EOS % 5.9 % (1.0-4.0); HEMATOCRIT 38.1 % (42.0-52.0); LYMPH # 1.7 10*3/uL (1.3-4.4); LYMPH % 38.5 % (27.0-41.0); MEAN CELL VOLUME 94.1 fl (80.0-94.0); MEAN CORPUSCULAR HGB 31.6 pg (27.0-31.0); MEAN CORPUSCULAR HGB CONC 33.6 g/dl (33.0-37.0); MEAN PLATELET VOLUME 9.7 fl (9.6-12.3); MONO # 0.6 10*3/uL (0.1-1.0); MONO % 12.8 % (3.0-9.0); NEUT # 1.9 10*3/uL (2.3-7.9); NEUT % 41.9 % (47.0-73.0); PLATELET COUNT AUTOMATED 212 10*3/uL (130-400); RED BLOOD COUNT 4.05 10*6/uL (4.50-5.90); RED CELL DISTRI WIDTH 12.3 % (0-14.5); WHITE BLOOD COUNT 4.4 10*3/uL (4.8-10.8)
[2021-05-05 08:00] VITALS: BP 125/72
[2021-05-05 12:00] VITALS: BP 107/56
[2021-05-05 16:00] VITALS: BP 111/87
[2021-05-05 20:00] VITALS: BP 146/75
[2021-05-06 08:00] VITALS: BP 154/90
[2021-05-06 08:15] LABS: BASO % 0.7 % (0.0-1.0); EOS # 0.2 10*3/uL (0.0-0.4); EOS % 5.3 % (1.0-4.0); HEMATOCRIT 40.1 % (42.0-52.0); LYMPH # 1.5 10*3/uL (1.3-4.4); LYMPH % 35.6 % (27.0-41.0); MEAN CELL VOLUME 94.8 fl (80.0-94.0); MEAN CORPUSCULAR HGB 31.7 pg (27.0-31.0); MEAN CORPUSCULAR HGB CONC 33.4 g/dl (33.0-37.0); MEAN PLATELET VOLUME 9.5 fl (9.6-12.3); MONO # 0.4 10*3/uL (0.1-1.0); MONO % 9.5 % (3.0-9.0); NEUT # 2.1 10*3/uL (2.3-7.9); NEUT % 48.7 % (47.0-73.0); PLATELET COUNT AUTOMATED 220 10*3/uL (130-400); RED BLOOD COUNT 4.23 10*6/uL (4.50-5.90); RED CELL DISTRI WIDTH 12.5 % (0-14.5); WHITE BLOOD COUNT 4.3 10*3/uL (4.8-10.8)
[2021-05-06 12:00] VITALS: BP 126/64
[2021-05-06 16:00] VITALS: BP 156/76
[2021-05-06 20:00] VITALS: BP 127/59
[2021-05-07] VITALS: BP 135/63
[2021-05-07 08:00] VITALS: BP 134/67
[2021-05-07] MEDS ORDERED: LEVOFLOXACIN500 MG PO ×2 (08:18)
[2021-05-07] MEDS ORDERED: ATARAX,VISTARIL10 MG PO (08:18)
[2021-05-07 12:00] VITALS: BP 133/96
[2021-05-21] MEDS ORDERED: PERCOCET 5-3251 EACH PO (10:02)
== END 2021-05-07 13:13 | disposition home or self-care (01) | DRG 603 ==
LOC: ED 22:53 → EDHOLD 05-03 01:02 → 4E 05-03 01:02
PROVIDERS: Emergency Medicine; Podiatrist Foot & Ankle Surgery; ADMIT Internal Medicine; ATTEND Internal Medicine
PROC: 0HDRXZZ Extraction of Toe Nail, External Approach (ICD-10-PCS; principal; 2021-05-03)
DX: L03.221 Cellulitis of neck (principal); L03.116 Cellulitis of left lower limb; I48.21 Permanent atrial fibrillation; L03.312 Cellulitis of back [any part except buttock and flank]; C44.90 Unspecified malignant neoplasm of skin, unspecified; M20.41 Other hammer toe(s) (acquired), right foot; L85.0 Acquired ichthyosis; N40.1 Benign prostatic hyperplasia with lower urinary tract symptoms; L60.0 Ingrowing nail; M20.42 Other hammer toe(s) (acquired), left foot; R74.01 Elevation of levels of liver transaminase levels; L29.9 Pruritus, unspecified; L03.032 Cellulitis of left toe; I10 Essential (primary) hypertension; F22 Delusional disorders; Z82.5 Family history of asthma and other chronic lower respiratory diseases; Z87.891 Personal history of nicotine dependence; Z79.01 Long term (current) use of anticoagulants; Z82.49 Family history of ischemic heart disease and other diseases of the circulatory system

== ENCOUNTER → 2021-05-08 | Outpatient (CLI) | payer OTHER ==
[~2021-05-08] MED LIST changes: +ASPIRIN ADULT L81 M2 PO; +ATARAX,VISTARIL10 MG PO; +LEVOFLOXACIN500 MG PO; +PERCOCET 5-3251 EACH PO; +SEROQUEL100 MG PO
== END ==
LOC: WOUNDCARE 01:09
PROVIDERS: ATTEND Surgery
DX: L89.891 Pressure ulcer of other site, stage 1 (principal); S11.90XA Unspecified open wound of unspecified part of neck, initial encounter; R21 Rash and other nonspecific skin eruption; F22 Delusional disorders; I10 Essential (primary) hypertension; I48.91 Unspecified atrial fibrillation; F41.9 Anxiety disorder, unspecified; N40.0 Benign prostatic hyperplasia without lower urinary tract symptoms; Z98.890 Other specified postprocedural states; Z79.899 Other long term (current) drug therapy; Z79.82 Long term (current) use of aspirin; X58.XXXA Exposure to other specified factors, initial encounter; Y93.89 Activity, other specified; Y92.89 Other specified places as the place of occurrence of the external cause; Y99.8 Other external cause status

== ENCOUNTER → 2021-05-15 | Outpatient (CLI) | payer OTHER | LOC: WOUNDCARE 01:52 | PROVIDERS: ATTEND Surgery | DX: L89.899 Pressure ulcer of other site, unspecified stage (principal); S11.90XD Unspecified open wound of unspecified part of neck, subsequent encounter; R21 Rash and other nonspecific skin eruption; I10 Essential (primary) hypertension; I48.91 Unspecified atrial fibrillation; N40.0 Benign prostatic hyperplasia without lower urinary tract symptoms; F41.9 Anxiety disorder, unspecified; F22 Delusional disorders; Z98.890 Other specified postprocedural states; Z79.899 Other long term (current) drug therapy; Z79.82 Long term (current) use of aspirin; X58.XXXD Exposure to other specified factors, subsequent encounter ==

== ENCOUNTER → 2021-05-21 | Day surgery (SDC) | payer OTHER ==
[~2021-05-21] VITALS: Ht 182.8 cm; Wt 71.7 kg
[2021-05-21 07:30] VITALS: BP 123/43
[2021-05-21 10:08] VITALS: BP 101/59
[2021-05-21 10:23] VITALS: BP 85/64
[2021-05-21 10:39] VITALS: BP 85/64
== END | disposition home or self-care (01) ==
LOC: SDC 05-17 13:15
PROVIDERS: ATTEND Surgery
DX: S11.90XA Unspecified open wound of unspecified part of neck, initial encounter (principal); F22 Delusional disorders; L98.499 Non-pressure chronic ulcer of skin of other sites with unspecified severity; F41.9 Anxiety disorder, unspecified; F32.9 Major depressive disorder, single episode, unspecified; J44.9 Chronic obstructive pulmonary disease, unspecified; I48.91 Unspecified atrial fibrillation; Z85.46 Personal history of malignant neoplasm of prostate; Z79.899 Other long term (current) drug therapy; Z20.822 Contact with and (suspected) exposure to COVID-19; X58.XXXA Exposure to other specified factors, initial encounter; Y93.89 Activity, other specified; Y92.89 Other specified places as the place of occurrence of the external cause; Y99.8 Other external cause status

== ENCOUNTER → 2021-05-29 | Outpatient (CLI) | payer OTHER | LOC: WOUNDCARE 01:38 | PROVIDERS: ATTEND Nurse Practitioner | DX: T81.89XA Other complications of procedures, not elsewhere classified, initial encounter (principal); R21 Rash and other nonspecific skin eruption; L28.1 Prurigo nodularis; I10 Essential (primary) hypertension; I48.91 Unspecified atrial fibrillation; N40.0 Benign prostatic hyperplasia without lower urinary tract symptoms; F41.9 Anxiety disorder, unspecified; F22 Delusional disorders; Z98.890 Other specified postprocedural states; Z79.899 Other long term (current) drug therapy; Z79.82 Long term (current) use of aspirin; Y83.8 Other surgical procedures as the cause of abnormal reaction of the patient, or of later complication, without mention of misadventure at the time of the procedure; Y92.238 Other place in hospital as the place of occurrence of the external cause ==

== ENCOUNTER → 2021-06-05 | Outpatient (CLI) | payer OTHER | LOC: WOUNDCARE 00:38 | PROVIDERS: ATTEND Surgery | DX: T81.89XD Other complications of procedures, not elsewhere classified, subsequent encounter (principal); S11.90XD Unspecified open wound of unspecified part of neck, subsequent encounter; R21 Rash and other nonspecific skin eruption; L28.1 Prurigo nodularis; I10 Essential (primary) hypertension; I48.91 Unspecified atrial fibrillation; N40.0 Benign prostatic hyperplasia without lower urinary tract symptoms; F41.9 Anxiety disorder, unspecified; F22 Delusional disorders; Z98.890 Other specified postprocedural states; Z79.899 Other long term (current) drug therapy; Z79.82 Long term (current) use of aspirin; Y83.8 Other surgical procedures as the cause of abnormal reaction of the patient, or of later complication, without mention of misadventure at the time of the procedure; X58.XXXD Exposure to other specified factors, subsequent encounter ==

== ENCOUNTER 2023-04-06 15:22 | Emergency (ER) | payer OTHER ==
[~2023-04-06] VITALS: Ht 180.3 cm; Wt 68.0 kg
[2023-04-06 15:56] VITALS: BP 149/41
[2023-04-06 16:38] LABS: BASO % 0.1 % (0.0-1.0); EOS % 0.1 % (1.0-4.0); HEMATOCRIT 41.9 % (42.0-52.0); LYMPH # 0.8 10*3/uL (1.3-4.4); LYMPH % 9.4 % (27.0-41.0); MEAN CELL VOLUME 93.9 fl (80.0-94.0); MEAN CORPUSCULAR HGB 32.7 pg (27.0-31.0); MEAN CORPUSCULAR HGB CONC 34.8 g/dl (33.0-37.0); MEAN PLATELET VOLUME 9.7 fl (9.6-12.3); MONO # 0.6 10*3/uL (0.1-1.0); MONO % 6.5 % (3.0-9.0); NEUT # 7.3 10*3/uL (2.3-7.9); NEUT % 83.7 % (47.0-73.0); PLATELET COUNT AUTOMATED 145 10*3/uL (130-400); RED BLOOD COUNT 4.46 10*6/uL (4.50-5.90); RED CELL DISTRI WIDTH 12.6 % (0-14.5); WHITE BLOOD COUNT 8.7 10*3/uL (4.8-10.8)
[2023-04-06 17:05] LABS: ALKALINE PHOSPHATASE 78 U/L (46-116); BUN 20 mg/dl (9-23); CHLORIDE 102 mmol/L (98-107); POTASSIUM 3.7 mmol/L (3.4-5.1); SGPT/ALT 9 U/L (10-49)
== END 2023-04-06 19:25 | disposition home or self-care (01) ==
LOC: ED 15:22
PROVIDERS: Nurse Practitioner Family
DX: B34.9 Viral infection, unspecified (principal); M19.90 Unspecified osteoarthritis, unspecified site; F41.9 Anxiety disorder, unspecified; F32.A Depression, unspecified; J44.9 Chronic obstructive pulmonary disease, unspecified; I48.91 Unspecified atrial fibrillation; Z98.890 Other specified postprocedural states; Z20.822 Contact with and (suspected) exposure to COVID-19

== ENCOUNTER 2023-07-12 14:55 | Emergency (ER) | payer OTHER ==
[2023-07-13] MEDS ORDERED: CEPHALEXIN500 M1 PO (14:47)
[2023-07-13] MEDS ORDERED: AMOXICILLIN875 MG PO (14:47)
== END 2023-07-12 16:51 | disposition left against medical advice (07) ==
LOC: ED 14:55
DX: M79.675 Pain in left toe(s) (principal); M79.672 Pain in left foot; Z53.21 Procedure and treatment not carried out due to patient leaving prior to being seen by health care provider

== ENCOUNTER 2024-01-27 12:32 | Emergency (ER) | payer OTHER ==
[~2024-01-27] VITALS: Ht 182.8 cm; Wt 68.0 kg
[~2024-01-27 12:32] MED LIST changes: +AMOXICILLIN875 MG PO; +CEPHALEXIN500 M1 PO
[2024-01-27 12:39] VITALS: BP 113/66
[2024-01-27 13:01] LABS: BASO % 0.9 % (0.0-1.0); EOS # 0.3 10*3/uL (0.0-0.4); EOS % 5.6 % (1.0-4.0); HEMATOCRIT 40.7 % (42.0-52.0); LYMPH # 1.2 10*3/uL (1.3-4.4); LYMPH % 24.6 % (27.0-41.0); MEAN CELL VOLUME 95.1 fl (80.0-94.0); MEAN CORPUSCULAR HGB 31.8 pg (27.0-31.0); MEAN CORPUSCULAR HGB CONC 33.4 g/dl (33.0-37.0); MEAN PLATELET VOLUME 9.2 fl (9.6-12.3); MONO # 0.5 10*3/uL (0.1-1.0); MONO % 9.6 % (3.0-9.0); NEUT # 2.8 10*3/uL (2.3-7.9); NEUT % 59.1 % (47.0-73.0); PLATELET COUNT AUTOMATED 210 10*3/uL (130-400); RED BLOOD COUNT 4.28 10*6/uL (4.50-5.90); RED CELL DISTRI WIDTH 12.7 % (0-14.5); WHITE BLOOD COUNT 4.7 10*3/uL (4.8-10.8)
[2024-01-27 13:14] LABS: ACT PARTIAL THROMBO TIME 25.4 SECONDS (20.0-32.1)
[2024-01-27 13:23] LABS: ALKALINE PHOSPHATASE 82 U/L (46-116); BUN 24 mg/dl (9-23); CHLORIDE 106 mmol/L (98-107); LIPASE 61 U/L (12-53); POTASSIUM 4.2 mmol/L (3.4-5.1); SGPT/ALT 21 U/L (5-49); TOTAL PROTEIN 6.2 gm/dL (6.0-8.0)
[2024-01-27] MEDS ORDERED: ACETAMINOPHEN 325 MG TAB PO ONE (17:15)
== END 2024-01-27 17:20 | disposition home or self-care (01) ==
LOC: ED 12:32
PROVIDERS: Internal Medicine
DX: R07.89 Other chest pain (principal); M19.90 Unspecified osteoarthritis, unspecified site; F41.9 Anxiety disorder, unspecified; F32.A Depression, unspecified; J44.9 Chronic obstructive pulmonary disease, unspecified; I48.91 Unspecified atrial fibrillation; Z98.890 Other specified postprocedural states; Z87.891 Personal history of nicotine dependence

== ENCOUNTER 2024-10-08 16:14 | Emergency (ER) | payer OTHER ==
[2024-10-08 17:23] VITALS: BP 115/88
[2024-10-08] MEDS ORDERED: ceFAZolin sodium/sodium chlor 20 ML IV ONE (19:10)
[2024-10-08] MEDS ORDERED: Sulfamethoxazole/Trimethopri 1 TAB TAB PO ONE (19:10)
[2024-10-08 19:37] LABS: BASO % 0.5 % (0.0-1.0); EOS # 0.3 10*3/uL (0.0-0.4); EOS % 3.9 % (1.0-4.0); HEMATOCRIT 44.4 % (42.0-52.0); MEAN CELL VOLUME 96.5 fl (80.0-94.0); MEAN CORPUSCULAR HGB 32.2 pg (27.0-31.0); MEAN CORPUSCULAR HGB CONC 33.3 g/dl (33.0-37.0); MEAN PLATELET VOLUME 9.5 fl (9.6-12.3); MONO # 0.7 10*3/uL (0.1-1.0); MONO % 11.1 % (3.0-9.0); NEUT # 3.7 10*3/uL (2.3-7.9); NEUT % 57.1 % (47.0-73.0); PLATELET COUNT AUTOMATED 254 10*3/uL (130-400); RED CELL DISTRI WIDTH 12.6 % (0-14.5); WHITE BLOOD COUNT 6.4 10*3/uL (4.8-10.8)
[2024-10-08] MEDS ORDERED: Acetaminophen/Oxycodone 5 MG/325 MG TABLET PO ONE (19:55)
[2024-10-08 20:00] LABS: BUN 19 mg/dl (9-23); CHLORIDE 106 mmol/L (98-107); POTASSIUM 4.1 mmol/L (3.4-5.1)
[2024-10-08] MEDS ORDERED: SODIUM CHLORIDE 0.9% 1,000 ML IV ONE (20:00)
[2024-10-08] MEDS ORDERED: SEPTDS PO (22:12)
[2024-10-08] MEDS ORDERED: CEPHALEXIN500 M1 PO (22:12)
== END 2024-10-08 22:50 | disposition home or self-care (01) ==
LOC: ED 16:14
PROVIDERS: Nurse Practitioner
DX: L03.032 Cellulitis of left toe (principal); K59.00 Constipation, unspecified; F41.9 Anxiety disorder, unspecified; F32.A Depression, unspecified; J44.9 Chronic obstructive pulmonary disease, unspecified; M19.90 Unspecified osteoarthritis, unspecified site; Z98.890 Other specified postprocedural states; Z87.891 Personal history of nicotine dependence

== ENCOUNTER 2024-10-26 11:42 | Emergency (ER) | payer OTHER ==
[~2024-10-26] VITALS: Ht 182.8 cm; Wt 70.3 kg
[~2024-10-26 11:42] MED LIST changes: +SEPTDS PO
[2024-10-26 11:51] VITALS: BP 128/74
[2024-10-26] MEDS ORDERED: IOHEXOL 300 MG/ML 100 ML VIAL IV ONE (12:10)
[2024-10-26] MEDS ORDERED: SODIUM CHLORIDE 0.9% 500 ML IV ONE (12:10)
[2024-10-26 12:22] LABS: BASO % 0.9 % (0.0-1.0); EOS # 0.2 10*3/uL (0.0-0.4); EOS % 4.4 % (1.0-4.0); HEMATOCRIT 42.4 % (42.0-52.0); MEAN CELL VOLUME 94.9 fl (80.0-94.0); MEAN CORPUSCULAR HGB 31.8 pg (27.0-31.0); MEAN CORPUSCULAR HGB CONC 33.5 g/dl (33.0-37.0); MEAN PLATELET VOLUME 9.2 fl (9.6-12.3); MONO # 0.5 10*3/uL (0.1-1.0); MONO % 10.6 % (3.0-9.0); NEUT # 1.8 10*3/uL (2.3-7.9); NEUT % 42.2 % (47.0-73.0); PLATELET COUNT AUTOMATED 213 10*3/uL (130-400); RED BLOOD COUNT 4.47 10*6/uL (4.50-5.90); RED CELL DISTRI WIDTH 12.9 % (0-14.5); WHITE BLOOD COUNT 4.3 10*3/uL (4.8-10.8)
[2024-10-26 12:47] LABS: ALKALINE PHOSPHATASE 100 U/L (46-116); BUN 21 mg/dl (9-23); CHLORIDE 103 mmol/L (98-107); LIPASE 42 U/L (12-53); POTASSIUM 4.2 mmol/L (3.4-5.1); SGPT/ALT 25 U/L (5-49); TOTAL PROTEIN 6.9 gm/dL (6.0-8.0)
[2024-10-26] MEDS ORDERED: Ketorolac Tromethamine 15 MG/ML VIAL IV ONE (13:40)
[2024-10-26] MEDS ORDERED: MAGNESIUM CITRATE 296 ML BOT PO ONE (13:55)
[2024-10-26] MEDS ORDERED: MIRALAX POWDER17 G1 PO (13:58)
== END 2024-10-26 14:12 | disposition home or self-care (01) ==
LOC: ED 11:42
PROVIDERS: Internal Medicine
DX: K59.00 Constipation, unspecified (principal); R11.2 Nausea with vomiting, unspecified; M19.90 Unspecified osteoarthritis, unspecified site; F41.9 Anxiety disorder, unspecified; F32.A Depression, unspecified; J44.9 Chronic obstructive pulmonary disease, unspecified; I48.91 Unspecified atrial fibrillation; Z98.890 Other specified postprocedural states; Z87.891 Personal history of nicotine dependence

== ENCOUNTER → 2024-10-28 | Outpatient (CLI) | payer OTHER ==
[~2024-10-28] MED LIST changes: +GADOTERATE MEGLUMINE 7.5 MMOL/15 ML VIAL IV ONE; +MIRALAX POWDER17 G1 PO
== END | disposition home or self-care (01) ==
LOC: MRI 09:00
PROVIDERS: ATTEND Psychiatry & Neurology Neurology
DX: I67.82 Cerebral ischemia (principal); H47.291 Other optic atrophy, right eye

== ENCOUNTER → 2025-02-03 | Outpatient (CLI) | payer OTHER ==
[~2025-02-03] MED LIST changes: -GADOTERATE MEGLUMINE 7.5 MMOL/15 ML VIAL IV ONE
== END | disposition home or self-care (01) ==
LOC: US 14:30
PROVIDERS: ATTEND Podiatrist
DX: M79.604 Pain in right leg (principal); M79.605 Pain in left leg; R60.0 Localized edema